=== PATIENT | female | born 1995 | race Asian ===

== ENCOUNTER 2020-05-29 11:47 | Outpatient (CLI) | payer OTHER ==
[2020-05-29 15:05] LABS: Bacteria,Urine 1+ /HPF (Negative); Bilirubin,Urine NEG (Negative); Blood,Urine NEG (Negative); Color,Urine Yellow (Yellow); Hyaline Casts,Urine 1 /LPF; Mucus,Urine FEW /HPF; Urobilinogen,Urine < 2.0 mg/dL (<2.0)
[2020-05-29] MEDS ORDERED: LACTATED RINGERS 1,000 ML IV SCH (15:15)
[2020-05-29 16:18] VITALS: BP 115/74
== END 2020-05-29 16:26 | disposition home or self-care (01) ==
LOC: TRG 11:47 → APU 12:03 → TRG 16:26
PROVIDERS: ATTEND Obstetrics & Gynecology
DX: O26.893 Other specified pregnancy related conditions, third trimester (principal); R60.9 Edema, unspecified; Z3A.31 31 weeks gestation of pregnancy
CPT/HCPCS: 59025; 81001

== ENCOUNTER 2020-06-06 17:47 | Outpatient (CLI) | payer OTHER ==
[2020-06-06 19:10] VITALS: BP 133/82
[2020-06-06] MEDS ORDERED: LACTATED RINGERS 1,000 ML IV SCH (19:15)
[2020-06-06 19:21] LABS: Hematocrit 34.9 % (30.3-42.9); Hemoglobin 11.9 gm/dl (10.1-14.3); Mean Corpuscular HGB Conc 34 % (30-34); Mean Corpuscular Volume 92 fl (79-97); Platelet Count 194 K/mm3 (140-440); Red Blood Count 3.79 M/mm3 (3.65-5.03); Red Cell Distribution Width 12.7 % (13.2-15.2)
[2020-06-06 19:24] LABS: Bacteria,Urine 1+ /HPF (Negative); Bilirubin,Urine NEG (Negative); Blood,Urine NEG (Negative); Color,Urine Yellow (Yellow); Hyaline Casts,Urine 3 /LPF; Mucus,Urine FEW /HPF; Protein,Urine <15 mg/dL mg/dL (Negative); Urobilinogen,Urine < 2.0 mg/dL (<2.0)
[2020-06-06 19:46] LABS: Alanine Aminotransferase 18 units/L (7-56); Uric Acid 5.5 mg/dL (3.5-7.6)
[2020-06-06] MEDS ORDERED: BUTALB/ACETAMINOPHEN/CAFFEINE TAB PO ONE (20:00)
== END 2020-06-06 20:48 | disposition home or self-care (01) ==
LOC: TRG 17:47 → EDBD 17:47 → APU 17:49 → TRG 20:48
PROVIDERS: ATTEND Obstetrics & Gynecology
DX: O29.43 Spinal and epidural anesthesia induced headache during pregnancy, third trimester (principal); Z3A.33 33 weeks gestation of pregnancy
CPT/HCPCS: 36415; 59025; 81001; 82565; 83615; 84450; 84460; 84550; 85027

== ENCOUNTER 2020-06-21 11:46 | Inpatient (IN) | payer OTHER ==
[2020-06-21] MEDS ORDERED: LACTATED RINGERS 500 ML IV ONE (11:55)
[2020-06-21 12:44] LABS: Bacteria,Urine 1+ /HPF (Negative); Bilirubin,Urine NEG (Negative); Blood,Urine NEG (Negative); Color,Urine Yellow (Yellow); Mucus,Urine FEW /HPF; Protein,Urine <15 mg/dL mg/dL (Negative)
--- NOTE | 2020-06-21 14:03 | History and Physical Report ---
History of Present Illness Date of examination: 06/21/20 (elevated BP; admit for 24hr urine) Chief complaint: Summary of Call: 929-Patient is calling with c/o elevated BP yesterday and last night states yesterday BP was 142/109, last night it was 150/114, and this morning it is 160/120. Pt#[phone]. ............... ....................................................Jo Ann Bedolla June 21, 2020 10:18 AM 1012-Called patient. Instructed patient to go to [facility] Labor and Delivery triage NOW. Denies ctx's, vaginal bleeding, LOF and reports +FM. Reports headache last night but took tylenol and it went away. States she just "feels off". Denies blurred vision, double vision, spots b/f eyes or epigastric pain. Pt state she will arrive at hospital in 30-40 minutes. Report called to Lubna Andrew, Clinical Instructor- she will give info to triage nurse...................................................................Jo Ann Bedolla June 21, 2020 10:19 AM History of present illness: EDC Confirmation: 07/05/2020 Gestational Age: 351/7 weeks Past History : 1 Term Births: 0 Premature Births: 0 Living Children: 0 Para: 0 Mult. Births: 0 Prev : 0 Aborta: 0 Elect. Ab: 0 Spont. Ab: 0 Ectopics: 0 Past Medical History: Eczema Past Surgical History: [place] [facility] [place] Summary: Other Family Member - Has No Family History of Ovarvian Cancer - Entered On: 12/09/2019 Other Family Member - Has No Family History of Colon Cancer - Entered On: 12/09/2019 Other Family Member - Has No Family History of Breast Cancer - Entered On: 12/09/2019 Other Family Member - Has Family History of Hypertension - Entered On: 12/09/2019 Other Family Member - Has Family History of Coronary Heart Disease - Entered On: 12/09/2019 Social History: Marital Status: Single Children: 0 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 of genital herpes: no Genetic History Congenital Heart Defect: Mom: no Dad: no Kallie Disease: Mom: no Dad: no Thalassemia Mom: no Dad: no Neural Tube Defect Mom: no Dad: no Down's Syndrome Mom: no Dad: no Jacobo-Sachs Mom: no Dad: no Sickle Cell Disease/Trait Mom: yes Dad: no Comments: Triat Hemophilia Mom: no Dad: no Muscular Dystrophy Mom: no Dad: no Cystic Fibrosis Mom: no Dad: no [place] Chorea Mom: no Dad: no Mental Retardation Mom: no Dad: no Fragile X Mom: no Dad: no Other Genetic/Chromosomal Disorder Mom: no Dad: no Child w/other defect Mom: no Dad: no Enviromental Exposures Xray Exposure: no Medication, drug, or alcohol use since LMP: yes Exposure to Cat Liter: no Active Medications (reviewed today): VITAMIN PLUS LOW IRON 27-1 MG ORAL TABLET ( VIT-FE FUMARATE-FA) 1 po q day as directed ZOFRAN 8 MG ORAL TABLET (ONDANSETRON HCL) 1 po q 8hrs prn nausea and vomiting METOCLOPRAMIDE HCL 10 MG ORAL TABLET (METOCLOPRAMIDE HCL) Current Allergies (reviewed today): No known allergies Past History - Obstetrical History Expected Date of Delivery: 07/25/20 Actual Gestation: 35 Week(s) 2 Day(s) : 1 Para: 0 Hx # Term Pregnancies: 0 Number of Pregnancies: 0 Spontaneous Abortions: 0 Induced : 0 Number of Living Children: 0 Medications and Allergies Allergies Allergy/AdvReac Type Severity Reaction Status Date / Time No Known Allergies Allergy Verified 06/06/20 18:12 Home Medications Medication Instructions Recorded Confirmed Last Taken Type Vitamin 1 tab PO DAILY 06/21/20 06/21/20 06/21/20 History Active Meds: Active Medications Lactated Ringer's (Lactated Ringers) 1,000 mls @ 125 mls/hr IV DIRECT SAFIA Review of Systems All systems: negative - Vital Signs Vital signs: Vital Signs Pulse BP 74 141/90 06/21/20 12:33 06/21/20 12:33 Temp Pulse Resp BP Pulse Ox 98.9 F 71 20 120/70 98 06/21/20 12:34 06/21/20 13:31 06/21/20 12:34 06/21/20 13:31 06/21/20 12:34 - Physical Exam Breasts: Positive: deferred Cardiovascular: Regular rate, Normal S1, Normal S2 Lungs: Positive: Clear to auscultation Abdomen: Positive: normal appearance, soft, normal bowel sounds. Negative: distention, tenderness Genitourinary (Female): Positive: normal external genitalia Vulva: both: normal Vagina: Positive: normal moisture. Negative: discharge Cervix: Negative: lesion, discharge Uterus: Positive: normal size, normal contour Adnexa: both: normal Anus/Rectum: Positive: normal perianal skin, heme negative. Negative: rectal mass, hemorrhoids Extremities: Positive: edema Deep Tendon Reflex Grade: Normal +2 - Obstetrical FHR: category 1 Uterine Contraction Monitor Mode: External Cervical Dilatation: 0 Cervical Effacement Percentage: 0 station: -2 Uterine Contraction Pattern: Absent Uterine Tone Measurement Phase: Resting Results Result Diagrams: 06/21/20 Unknown 06/21/20 Unknown All other labs normal. GBS Unknown Blood Type: O (01/17/2020) Rh Type: positive (01/17/2020) Rh Antibody Screen: negative (01/17/2020) Hgb: 10.7 (01/17/2020) Hct: 32.6 (01/17/2020) Platelets: 236 (01/17/2020) Rubella: immune (01/17/2020) RPR: nonreactive (01/17/2020) Hep B Surface Antigen: negative (01/17/2020) HIV: negative (01/17/2020) Assessment and Plan 25yo @ 35w1d with elevated BP Initially admitted for 24hr urine and observation. Noted BPs in severe range MGSO4 started. BMZ X 2 doses ordered. I called and spoke with the pt @ the change in the POC. All questions addressed. Pt is aware she may be delivered. - Patient Problems (1) 35 weeks gestation of Onset Date: ~06/21/20 Current Visit: Yes Status: Acute Plan to address problem: Will collect GBS swab. If results unavailable @ IOL will treat per protocol. Continuous monitoring (2) Elevated blood pressure complicating , antepartum Onset Date: ~06/21/20 Current Visit: Yes Status: Acute Plan to address problem: Pt called with elevated BPs Noted in severe range MGSO4 for neuro protection. BMZ to be given X 2 doses (3) Herpes genitalis Onset Date: ~06/21/20 Current Visit: Yes Status: Acute Qualifiers: Herpes simplex infection site: vulvovaginitis Qualified Code(s): A60.04 - Herpesviral vulvovaginitis Plan to address problem: Start Valacyclovir 1k for prophylaxis. No ulcerations noted @ time of admission (4) Sickle cell trait syndrome Onset Date: ~06/21/20 Current Visit: Yes Status: Acute
[2020-06-21 14:04] LABS: Hematocrit 30.8 % (30.3-42.9); Hemoglobin 10.8 gm/dl (10.1-14.3); Mean Corpuscular HGB Conc 35 % (30-34); Mean Corpuscular Volume 92 fl (79-97); Platelet Count 161 K/mm3 (140-440); Red Blood Count 3.35 M/mm3 (3.65-5.03); Red Cell Distribution Width 13.1 % (13.2-15.2)
[2020-06-21 14:30] LABS: Alanine Aminotransferase 16 units/L (7-56); Uric Acid 5.3 mg/dL (3.5-7.6)
[2020-06-21] MEDS ORDERED: SODIUM CHLORIDE NASAL SPRAY 44ML NS PRN (14:30)
[2020-06-21] MEDS ORDERED: ACETAMINOPHEN 325 MG TAB PO PRN (14:30)
[2020-06-21] MEDS ORDERED: diphenhydrAMINE 25 MG CAP PO PRN (14:30)
[2020-06-21] MEDS ORDERED: ONDANSETRON 4 MG/2 ML INJ IV PRN (14:30)
[2020-06-21] MEDS ORDERED: DOCUSATE SODIUM 100 MG CAP PO PRN (15:00)
--- NOTE | 2020-06-21 16:14 | Event Note ---
Date: 06/21/20 Due to severe range blood pressures will start magnesium sulfate at this time as well as administer steroids. Will update pt on change in care plan.
[2020-06-21] MEDS ORDERED: MAGNESIUM SULFATE 4 GM/100 ML BAG IV SCH (16:30)
[2020-06-21] MEDS ORDERED: MAGNESIUM SULFATE 40GM/1000ML 40 GM/1,000 ML BAG IV SCH (17:00)
[2020-06-21] MEDS: BETAMET ACET/BETAMET NA PH 6 MG/ML INJ 5 ML MDV IM SCH (17:01)
[2020-06-21] MEDS: PRENATAL VIT27-FE FUMARATE-FOLIC ACID VIT TAB PO SCH (17:06)
[2020-06-21] MEDS ORDERED: hydrALAZINE 20 MG/1 ML INJ IV ONE (18:20)
[2020-06-21] MEDS: valACYclovir 500 MG TAB PO SCH (18:25)
[2020-06-21] MEDS: LACTATED RINGERS 1,000 ML IV SCH (18:50)
--- NOTE | 2020-06-21 19:30 | Event Note ---
Date: 06/21/20 I d/w plan of care at this time. IV started after some delay due to pt being a difficult stick. Pt is s/p magnesium bolus and po labetalol. Will con' to closely monitor at this time. She only c/o having pain with the marsh cath. I d/w that we will give lidocane cream to help with the pain.
[2020-06-21] MEDS ORDERED: EMLA CREAM 5 GM TP ONE (21:30)
[2020-06-22] MEDS ORDERED: AMPICILLIN/NS 1 GM/50 ML 1 GM/50 ML BAG IV SCH (02:00)
--- NOTE | 2020-06-22 07:03 | Progress Note ---
Assessment and Plan Pt seen by Dr Star dennison AM Plan based on results of 24hr urine - Patient Problems (1) 35 weeks gestation of Onset Date: ~06/21/20 Current Visit: Yes Status: Acute Plan to address problem: BMZ being given Second dose @1700. Continuous FM. (2) Elevated blood pressure complicating , antepartum Onset Date: ~06/21/20 Current Visit: Yes Status: Acute Plan to address problem: Labetalol 200mg BID (3) Herpes genitalis Onset Date: ~06/21/20 Current Visit: Yes Status: Acute Qualifiers: Herpes simplex infection site: vulvovaginitis Qualified Code(s): A60.04 - Herpesviral vulvovaginitis Plan to address problem: Valacyclovir 1k QD (4) Sickle cell trait syndrome Onset Date: ~06/21/20 Current Visit: Yes Status: Acute Subjective - Subjective Date of service: 06/22/20 (pt in good spirits) Principal diagnosis: IUP 35w3d PreE; MGSO4, BMZ, Labetalol 200mg BID Interval history: EDC Confirmation: 07/05/2020 Gestational Age: 351/7 weeks Past History : 1 Term Births: 0 Premature Births: 0 Living Children: 0 Para: 0 Mult. Births: 0 Prev : 0 Aborta: 0 Elect. Ab: 0 Spont. Ab: 0 Ectopics: 0 Past Medical History: Eczema Past Surgical History: Abdominal Surgery: (10/07/2019) [facility] – [place] Family History Summary: Other Family Member - Has No Family History of Ovarvian Cancer - Entered On: 12/09/2019 Other Family Member - Has No Family History of Colon Cancer - Entered On: 12/09/2019 Other Family Member - Has No Family History of Breast Cancer - Entered On: 12/09/2019 Other Family Member - Has Family History of Hypertension - Entered On: 12/09/2019 Other Family Member - Has Family History of Coronary Heart Disease - Entered On: 12/09/2019 Social History: Marital Status: Single Children: 0 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 of genital herpes: no Genetic History Congenital Heart Defect: Mom: no Dad: no Kallie Disease: Mom: no Dad: no Thalassemia Mom: no Dad: no Neural Tube Defect Mom: no Dad: no Down's Syndrome Mom: no Dad: no Jacobo-Sachs Mom: no Dad: no Sickle Cell Disease/Trait Mom: yes Dad: no Comments: Triat Hemophilia Mom: no Dad: no Muscular Dystrophy Mom: no Dad: no Cystic Fibrosis Mom: no Dad: no [place] Chorea Mom: no Dad: no Mental Retardation Mom: no Dad: no Fragile X Mom: no Dad: no Other Genetic/Chromosomal Disorder Mom: no Dad: no Child w/other defect Mom: no Dad: no Enviromental Exposures Xray Exposure: no Medication, drug, or alcohol use since LMP: yes Exposure to Cat Liter: no Active Medications (reviewed today): VITAMIN PLUS LOW IRON 27-1 MG ORAL TABLET ( VIT-FE FUMARATE-FA) 1 po q day as directed ZOFRAN 8 MG ORAL TABLET (ONDANSETRON HCL) 1 po q 8hrs prn nausea and vomiting METOCLOPRAMIDE HCL 10 MG ORAL TABLET (METOCLOPRAMIDE HCL) Current Allergies (reviewed today): No known allergies Patient reports: movement normal Objective - Vital Signs Vital Signs: Vital Signs - 12hr 06/21/20 06/21/20 06/21/20 19:04 19:09 19:19 Temperature 98.6 F Pulse Rate 98 H 94 H Respiratory 19 Rate Blood Pressure 139/86 144/89 Blood Pressure [Right] O2 Sat by Pulse Oximetry 06/21/20 06/21/20 06/21/20 19:34 19:49 20:04 Temperature Pulse Rate 100 H 92 H 93 H Respiratory Rate Blood Pressure 139/87 142/82 141/82 Blood Pressure [Right] O2 Sat by Pulse Oximetry 06/21/20 06/21/20 06/21/20 20:19 20:34 20:49 Temperature Pulse Rate 88 91 H 88 Respiratory Rate Blood Pressure 133/77 136/80 140/79 Blood Pressure [Right] O2 Sat by Pulse Oximetry 06/21/20 06/21/20 06/21/20 21:05 21:19 21:34 Temperature Pulse Rate 95 H 99 H 93 H Respiratory Rate Blood Pressure 130/78 158/89 143/76 Blood Pressure [Right] O2 Sat by Pulse Oximetry 06/21/20 06/21/20 06/21/20 21:40 21:41 21:46 Temperature Pulse Rate 91 H 94 H 90 Respiratory Rate Blood Pressure Blood Pressure [Right] O2 Sat by Pulse 84 100 100 Oximetry 06/21/20 06/21/20 06/21/20 21:49 21:51 21:56 Temperature Pulse Rate 96 H 87 100 H Respiratory Rate Blood Pressure 140/78 Blood Pressure [Right] O2 Sat by Pulse 100 100 Oximetry 06/21/20 06/21/20 06/21/20 22:01 22:04 22:06 Temperature Pulse Rate 95 H 89 94 H Respiratory Rate Blood Pressure 143/80 Blood Pressure [Right] O2 Sat by Pulse 100 100 Oximetry 06/21/20 06/21/20 06/21/20 22:11 22:14 22:15 Temperature 98.4 F Pulse Rate 94 H 94 H 89 Respiratory 18 Rate Blood Pressure 140/77 Blood Pressure 140/77 [Right] O2 Sat by Pulse 100 Oximetry 06/21/20 06/21/20 06/21/20 22:16 22:19 22:20 Temperature Pulse Rate 91 H 88 98 H Respiratory Rate Blood Pressure 141/79 141/79 Blood Pressure [Right] O2 Sat by Pulse 100 Oximetry 06/21/20 06/21/20 06/21/20 22:21 22:26 22:31 Temperature Pulse Rate 96 H 95 H 92 H Respiratory Rate Blood Pressure Blood Pressure [Right] O2 Sat by Pulse 100 100 100 Oximetry 06/21/20 06/21/20 06/21/20 22:34 22:36 22:41 Temperature Pulse Rate 94 H 94 H 92 H Respiratory Rate Blood Pressure 112/72 Blood Pressure [Right] O2 Sat by Pulse 100 100 Oximetry 06/21/20 06/21/20 06/21/20 22:46 22:50 22:51 Temperature Pulse Rate 95 H 93 H 103 H Respiratory Rate Blood Pressure 137/72 Blood Pressure [Right] O2 Sat by Pulse 100 100 Oximetry 06/21/20 06/21/20 06/21/20 22:56 23:01 23:04 Temperature Pulse Rate 102 H 90 94 H Respiratory Rate Blood Pressure 143/75 Blood Pressure [Right] O2 Sat by Pulse 100 100 Oximetry 06/21/20 06/21/20 06/21/20 23:06 23:11 23:15 Temperature Pulse Rate 101 H 93 H 94 H Respiratory Rate Blood Pressure Blood Pressure [Right] O2 Sat by Pulse 99 99 100 Oximetry 06/21/20 06/21/20 06/21/20 23:19 23:21 23:26 Temperature Pulse Rate 89 84 89 Respiratory Rate Blood Pressure 139/73 Blood Pressure [Right] O2 Sat by Pulse 99 100 Oximetry 06/21/20 06/21/20 06/21/20 23:31 23:34 23:36 Temperature Pulse Rate 90 91 H 94 H Respiratory Rate Blood Pressure 142/77 Blood Pressure [Right] O2 Sat by Pulse 99 99 Oximetry 06/21/20 06/21/20 06/21/20 23:41 23:45 23:49 Temperature Pulse Rate 93 H 91 H 85 Respiratory Rate Blood Pressure 143/79 Blood Pressure [Right] O2 Sat by Pulse 99 100 Oximetry 06/21/20 06/21/20 06/22/20 23:51 23:56 00:01 Temperature Pulse Rate 89 93 H 87 Respiratory Rate Blood Pressure Blood Pressure [Right] O2 Sat by Pulse 98 99 100 Oximetry 06/22/20 06/22/20 06/22/20 00:04 00:05 00:11 Temperature Pulse Rate 86 89 91 H Respiratory Rate Blood Pressure 140/85 Blood Pressure [Right] O2 Sat by Pulse 99 99 Oximetry 06/22/20 06/22/20 06/22/20 00:16 00:19 00:21 Temperature Pulse Rate 91 H 88 89 Respiratory Rate Blood Pressure 142/87 Blood Pressure [Right] O2 Sat by Pulse 100 99 Oximetry 06/22/20 06/22/20 06/22/20 00:26 00:31 00:35 Temperature Pulse Rate 89 90 88 Respiratory Rate Blood Pressure 131/76 Blood Pressure [Right] O2 Sat by Pulse 98 97 98 Oximetry 06/22/20 06/22/20 06/22/20 00:41 00:46 00:49 Temperature Pulse Rate 91 H 93 H 97 H Respiratory Rate Blood Pressure 134/74 Blood Pressure [Right] O2 Sat by Pulse 97 96 Oximetry 06/22/20 06/22/20 06/22/20 00:51 00:56 01:00 Temperature Pulse Rate 92 H 94 H 84 Respiratory Rate Blood Pressure Blood Pressure [Right] O2 Sat by Pulse 97 96 99 Oximetry 06/22/20 06/22/20 06/22/20 01:05 01:11 01:16 Temperature Pulse Rate 86 91 H 87 Respiratory Rate Blood Pressure 136/86 Blood Pressure [Right] O2 Sat by Pulse 98 98 99 Oximetry 06/22/20 06/22/20 06/22/20 01:21 01:25 01:30 Temperature Pulse Rate 82 81 87 Respiratory Rate Blood Pressure Blood Pressure [Right] O2 Sat by Pulse 99 100 98 Oximetry 06/22/20 06/22/20 06/22/20 01:34 01:35 01:41 Temperature Pulse Rate 86 89 90 Respiratory Rate Blood Pressure 139/81 Blood Pressure [Right] O2 Sat by Pulse 98 97 Oximetry 06/22/20 06/22/20 06/22/20 01:45 01:49 01:51 Temperature Pulse Rate 90 99 H 87 Respiratory Rate Blood Pressure 141/82 Blood Pressure [Right] O2 Sat by Pulse 98 98 Oximetry 06/22/20 06/22/20 06/22/20 01:55 02:00 02:04 Temperature 98.7 F Pulse Rate 88 94 H 89 Respiratory 18 Rate Blood Pressure 135/77 Blood Pressure 135/77 [Right] O2 Sat by Pulse 97 97 Oximetry 06/22/20 06/22/20 06/22/20 02:06 02:10 02:15 Temperature Pulse Rate 91 H 91 H 88 Respiratory Rate Blood Pressure Blood Pressure [Right] O2 Sat by Pulse 97 97 98 Oximetry 06/22/20 06/22/20 06/22/20 02:19 02:21 02:26 Temperature Pulse Rate 88 84 86 Respiratory Rate Blood Pressure 135/74 Blood Pressure [Right] O2 Sat by Pulse 98 98 Oximetry 06/22/20 06/22/20 06/22/20 02:30 02:34 02:35 Temperature Pulse Rate 89 90 88 Respiratory Rate Blood Pressure 140/84 Blood Pressure [Right] O2 Sat by Pulse 98 98 Oximetry 06/22/20 06/22/20 06/22/20 02:40 02:45 02:49 Temperature Pulse Rate 86 81 88 Respiratory Rate Blood Pressure 139/86 Blood Pressure [Right] O2 Sat by Pulse 100 100 Oximetry 06/22/20 06/22/2006/22/21 02:50 02:55 03:00 Temperature Pulse Rate 84 83 85 Respiratory Rate Blood Pressure Blood Pressure [Right] O2 Sat by Pulse 99 99 98 Oximetry 06/22/20 06/22/20 06/22/20 03:05 03:10 03:15 Temperature Pulse Rate 81 86 89 Respiratory Rate Blood Pressure 134/81 Blood Pressure [Right] O2 Sat by Pulse 99 98 98 Oximetry 06/22/20 06/22/20 06/22/20 03:19 03:20 03:25 Temperature Pulse Rate 89 89 87 Respiratory Rate Blood Pressure 132/78 Blood Pressure [Right] O2 Sat by Pulse 98 98 Oximetry 06/22/20 06/22/20 06/22/20 03:30 03:34 03:35 Temperature Pulse Rate 88 85 86 Respiratory Rate Blood Pressure 137/78 Blood Pressure [Right] O2 Sat by Pulse 98 98 Oximetry 06/22/20 06/22/20 06/22/20 03:40 03:45 03:49 Temperature Pulse Rate 88 86 100 H Respiratory Rate Blood Pressure 140/76 Blood Pressure [Right] O2 Sat by Pulse 98 98 Oximetry 06/22/20 06/22/20 06/22/20 03:50 03:55 04:00 Temperature Pulse Rate 81 85 83 Respiratory Rate Blood Pressure Blood Pressure [Right] O2 Sat by Pulse 98 98 99 Oximetry 06/22/20 06/22/20 06/22/20 04:04 04:05 04:10 Temperature Pulse Rate 92 H 84 80 Respiratory Rate Blood Pressure 139/71 Blood Pressure [Right] O2 Sat by Pulse 100 99 Oximetry 06/22/20 06/22/20 06/22/20 04:15 04:20 04:25 Temperature Pulse Rate 87 81 86 Respiratory Rate Blood Pressure 133/82 Blood Pressure [Right] O2 Sat by Pulse 98 99 98 Oximetry 06/22/20 06/22/20 06/22/20 04:30 04:34 04:35 Temperature Pulse Rate 86 89 88 Respiratory Rate Blood Pressure 138/83 Blood Pressure [Right] O2 Sat by Pulse 98 98 Oximetry 06/22/20 06/22/20 06/22/20 04:40 04:45 04:49 Temperature Pulse Rate 86 86 86 Respiratory Rate Blood Pressure 143/88 Blood Pressure [Right] O2 Sat by Pulse 98 98 Oximetry 06/22/20 06/22/2006/22/21 04:50 04:55 05:00 Temperature Pulse Rate 83 86 84 Respiratory Rate Blood Pressure Blood Pressure [Right] O2 Sat by Pulse 99 98 98 Oximetry 06/22/20 06/22/20 06/22/20 05:05 05:10 05:15 Temperature Pulse Rate 85 88 85 Respiratory Rate Blood Pressure 136/77 Blood Pressure [Right] O2 Sat by Pulse 99 98 99 Oximetry 06/22/20 06/22/20 06/22/20 05:19 05:20 05:25 Temperature Pulse Rate 88 85 89 Respiratory Rate Blood Pressure 139/79 Blood Pressure [Right] O2 Sat by Pulse 98 98 Oximetry 06/22/20 06/22/20 06/22/20 05:30 05:34 05:35 Temperature Pulse Rate 81 83 81 Respiratory Rate Blood Pressure 143/82 Blood Pressure [Right] O2 Sat by Pulse 99 99 Oximetry 06/22/20 06/22/20 06/22/20 05:40 05:45 05:49 Temperature Pulse Rate 88 82 85 Respiratory Rate Blood Pressure 141/79 Blood Pressure [Right] O2 Sat by Pulse 98 99 Oximetry 06/22/20 06/22/20 06/22/20 05:50 05:55 06:00 Temperature Pulse Rate 84 84 85 Respiratory Rate Blood Pressure Blood Pressure [Right] O2 Sat by Pulse 98 99 99 Oximetry 06/22/20 06/22/20 06/22/20 06:05 06:10 06:15 Temperature Pulse Rate 98 H 85 89 Respiratory Rate Blood Pressure 139/94 Blood Pressure [Right] O2 Sat by Pulse 99 99 99 Oximetry 06/22/20 06/22/20 06/22/20 06:19 06:20 06:25 Temperature Pulse Rate 87 82 84 Respiratory Rate Blood Pressure 134/92 Blood Pressure [Right] O2 Sat by Pulse 100 100 Oximetry 06/22/20 06/22/20 06/22/20 06:30 06:34 06:35 Temperature Pulse Rate 85 85 82 Respiratory Rate Blood Pressure 131/84 Blood Pressure [Right] O2 Sat by Pulse 100 100 Oximetry 06/22/20 06/22/20 06/22/20 06:40 06:45 06:50 Temperature Pulse Rate 85 88 88 Respiratory Rate Blood Pressure 127/83 Blood Pressure [Right] O2 Sat by Pulse 100 99 100 Oximetry 06/22/20 06/22/20 06:55 07:00 Temperature Pulse Rate 91 H 89 Respiratory Rate Blood Pressure Blood Pressure [Right] O2 Sat by Pulse 100 100 Oximetry - Exam Breasts: deferred Cardiovascular: Regular rate Lungs: Normal air movement Abdomen: Present: normal appearance, soft. Absent: distention, tenderness Uterus: Present: normal FHR: auscultation normal - Labs Labs: Abnormal Labs 06/21/20 06/22/20 Unknown 00:57 RBC 3.35 L MCHC 35 H RDW 13.1 L Magnesium 4.10 H Laboratory Results - last 24 hr 06/21/20 06/21/20 06/21/20 15:15 Unknown Unknown WBC 5.4 RBC 3.35 L Hgb 10.8 Hct 30.8 MCV 92 MCH 32 MCHC 35 H RDW 13.1 L Plt Count 161 Creatinine Estimated GFR Uric Acid Magnesium AST ALT Lactate Dehydrogenase Urine Color Yellow Urine Turbidity Clear Urine pH 6.0 Ur Specific [place] 1.014 Urine Protein <15 mg/dl Urine Glucose (UA) Neg Urine Ketones Neg Urine Blood Neg Urine Nitrite Neg Urine Bilirubin Neg Urine Urobilinogen 2.0 Ur Leukocyte Esterase Neg Urine WBC (Auto) 2.0 Urine RBC (Auto) 1.0 U Epithel Cells (Auto) 2.0 Urine Bacteria (Auto) 1+ Urine Mucus Few Blood Type O POSITIVE Antibody Screen Negative 06/21/20 06/22/20 Unknown 00:57 WBC RBC Hgb Hct MCV MCH MCHC RDW Plt Count Creatinine 0.6 Estimated GFR > 60 Uric Acid 5.3 Magnesium 4.10 H AST 20 ALT 16 Lactate Dehydrogenase 168 Urine Color Urine Turbidity Urine pH Ur Specific [place] Urine Protein Urine Glucose (UA) Urine Ketones Urine Blood Urine Nitrite Urine Bilirubin Urine Urobilinogen Ur Leukocyte Esterase Urine WBC (Auto) Urine RBC (Auto) U Epithel Cells (Auto) Urine Bacteria (Auto) Urine Mucus Blood Type Antibody Screen
[2020-06-22] MEDS: ACETAMINOPHEN 500 MG TAB PO PRN ×2 (08:34→16:06)
[2020-06-22] MEDS: LACTATED RINGERS 1,000 ML IV SCH ×2 (08:35→22:08)
[2020-06-22] MEDS: PRENATAL VIT27-FE FUMARATE-FOLIC ACID VIT TAB PO SCH (09:58)
[2020-06-22] MEDS: valACYclovir 500 MG TAB PO SCH (09:58)
--- NOTE | 2020-06-22 10:15 | Ultrasound Report ---
US OB FOLLOW UP INDICATION / CLINICAL INFORMATION: Gestational hypertension. EFW, presentation, GINETTE. COMPARISON: None available. FINDINGS: There is a single intrauterine in a cephalic presentation. The heart rate is 133 bpm. Amniotic fluid volume is normal with an GINETTE of 11.7 cm. The estimated sonographic gestational age is 32 weeks 3 days with an EDC of 08/14/2020. Clinical dates are 35 weeks 2 days. The estimated we ight is 1981 +/- 293 g. Signer Name: Marlon Byrne MD Signed: 06/22/2020 10:11 AM Workstation Name: [id number]
[2020-06-22] MEDS: BETAMET ACET/BETAMET NA PH 6 MG/ML INJ 5 ML MDV IM SCH (17:13)
--- NOTE | 2020-06-22 20:10 | Progress Note ---
Assessment and Plan - Patient Problems (1) 35 weeks gestation of Onset Date: ~06/21/20 Current Visit: Yes Status: Acute (2) Gestational HTN Current Visit: Yes Status: Acute Qualifiers: Trimester: third trimester Qualified Code(s): O13.3 - Gestational [-induced] hypertension without significant proteinuria, third trimester Plan to address problem: Per [facility] recommendations will proceed with delivery. Recommendations discussed with patient, serial induction explained, she was informed she will require MgSO4 and marsh once she's in active labor as well as IOL may require several days. Questions were encouraged and answered, she voiced understanding and agrees to proceed with induction. Will start Cervidil induction (3) Herpes genitalis Onset Date: ~06/21/20 Current Visit: Yes Status: Chronic Qualifiers: Herpes simplex infection site: vulvovaginitis Qualified Code(s): A60.04 - Herpesviral vulvovaginitis Plan to address problem: No lesions noted, no complaints and no prodromal symptoms (4) Sickle cell trait syndrome Onset Date: ~06/21/20 Current Visit: Yes Status: Acute Subjective - Subjective Date of service: 06/22/20 Principal diagnosis: IUP 35w2d GHTN Interval history: Complains of ZUÑIGA, Patient reports: movement normal, other, no loss of fluid (ZUÑIGA), no vaginal bleeding, no contractions Objective - Vital Signs Vital Signs: Vital Signs - 12hr 06/22/20 06/22/20 06/22/20 08:10 08:15 08:20 Temperature Pulse Rate 99 H 86 83 Respiratory Rate Blood Pressure Blood Pressure [Right] O2 Sat by Pulse 100 100 100 Oximetry 06/22/20 06/22/20 06/22/20 08:25 08:30 08:32 Temperature Pulse Rate 100 H 82 85 Respiratory Rate Blood Pressure 126/86 Blood Pressure [Right] O2 Sat by Pulse 100 100 Oximetry 06/22/20 06/22/20 06/22/20 08:35 08:40 08:45 Temperature Pulse Rate 86 84 88 Respiratory Rate Blood Pressure Blood Pressure [Right] O2 Sat by Pulse 100 100 99 Oximetry 06/22/20 06/22/20 06/22/20 08:50 08:55 09:00 Temperature Pulse Rate 86 85 85 Respiratory Rate Blood Pressure Blood Pressure [Right] O2 Sat by Pulse 100 100 100 Oximetry 0206/22/20 06/22/20 09:03 09:05 09:10 Temperature Pulse Rate 84 84 90 Respiratory Rate Blood Pressure 130/69 Blood Pressure [Right] O2 Sat by Pulse 100 100 Oximetry 06/22/20 06/22/20 06/22/20 09:15 09:20 09:25 Temperature Pulse Rate 91 H 90 91 H Respiratory Rate Blood Pressure Blood Pressure [Right] O2 Sat by Pulse 100 100 100 Oximetry 06/22/20 06/22/20 06/22/20 09:30 09:32 09:35 Temperature Pulse Rate 92 H 93 H 90 Respiratory Rate Blood Pressure 126/84 Blood Pressure [Right] O2 Sat by Pulse 100 100 Oximetry 06/22/20 06/22/20 06/22/20 09:40 09:45 09:50 Temperature Pulse Rate 95 H 98 H 85 Respiratory Rate Blood Pressure Blood Pressure [Right] O2 Sat by Pulse 100 100 89 Oximetry 06/22/20 06/22/20 06/22/20 09:55 09:56 09:59 Temperature Pulse Rate 92 H 95 H 85 Respiratory Rate Blood Pressure 126/84 Blood Pressure [Right] O2 Sat by Pulse 100 94 Oximetry 06/22/20 06/22/20 06/22/20 10:00 10:02 10:05 Temperature Pulse Rate 96 H 86 84 Respiratory Rate Blood Pressure 136/84 Blood Pressure [Right] O2 Sat by Pulse 100 100 Oximetry 06/22/20 06/22/20 06/22/20 10:10 10:15 10:20 Temperature Pulse Rate 83 85 82 Respiratory Rate Blood Pressure Blood Pressure [Right] O2 Sat by Pulse 100 100 100 Oximetry 06/22/20 06/22/20 06/22/20 10:25 10:30 10:32 Temperature Pulse Rate 90 85 83 Respiratory Rate Blood Pressure 132/81 Blood Pressure [Right] O2 Sat by Pulse 100 100 Oximetry 06/22/20 06/22/20 06/22/20 10:35 10:40 10:45 Temperature Pulse Rate 83 88 92 H Respiratory Rate Blood Pressure Blood Pressure [Right] O2 Sat by Pulse 100 100 99 Oximetry 06/22/20 06/22/20 06/22/20 10:50 10:55 11:00 Temperature Pulse Rate 84 99 H 93 H Respiratory Rate Blood Pressure Blood Pressure [Right] O2 Sat by Pulse 100 100 100 Oximetry 06/22/20 06/22/20 06/22/20 11:05 11:10 11:15 Temperature Pulse Rate 90 89 94 H Respiratory Rate Blood Pressure 138/72 Blood Pressure [Right] O2 Sat by Pulse 100 100 100 Oximetry 06/22/20 06/22/20 06/22/20 11:20 11:25 11:30 Temperature Pulse Rate 89 98 H 86 Respiratory Rate Blood Pressure Blood Pressure [Right] O2 Sat by Pulse 100 100 99 Oximetry 06/22/20 06/22/20 06/22/20 11:32 11:35 11:40 Temperature Pulse Rate 100 H 93 H 94 H Respiratory Rate Blood Pressure 136/84 Blood Pressure [Right] O2 Sat by Pulse 100 100 Oximetry 06/22/20 06/22/20 06/22/20 11:45 11:47 11:48 Temperature 97.7 F Pulse Rate 98 H 91 H 91 H Respiratory 18 Rate Blood Pressure 140/92 Blood Pressure 140/92 [Right] O2 Sat by Pulse 99 98 Oximetry 06/22/20 06/22/20 06/22/20 11:50 11:55 12:00 Temperature Pulse Rate 91 H 94 H 89 Respiratory Rate Blood Pressure Blood Pressure [Right] O2 Sat by Pulse 100 100 100 Oximetry 06/22/20 06/22/20 06/22/20 12:02 12:05 12:10 Temperature Pulse Rate 91 H 92 H 95 H Respiratory Rate Blood Pressure 140/93 Blood Pressure [Right] O2 Sat by Pulse 100 100 Oximetry 06/22/20 06/22/20 06/22/20 12:15 12:20 12:25 Temperature Pulse Rate 93 H 89 98 H Respiratory Rate Blood Pressure Blood Pressure [Right] O2 Sat by Pulse 100 100 100 Oximetry 06/22/20 06/22/20 06/22/20 12:30 12:32 12:35 Temperature Pulse Rate 88 90 94 H Respiratory Rate Blood Pressure 137/94 Blood Pressure [Right] O2 Sat by Pulse 100 100 Oximetry 06/22/20 06/22/20 06/22/20 12:40 12:45 12:50 Temperature Pulse Rate 94 H 93 H 99 H Respiratory Rate Blood Pressure Blood Pressure [Right] O2 Sat by Pulse 100 100 100 Oximetry 06/22/20 06/22/20 06/22/20 12:55 13:00 13:02 Temperature Pulse Rate 90 83 88 Respiratory Rate Blood Pressure 135/81 Blood Pressure [Right] O2 Sat by Pulse 100 100 Oximetry 06/22/20 06/22/20 06/22/20 13:05 13:10 13:15 Temperature Pulse Rate 86 86 88 Respiratory Rate Blood Pressure Blood Pressure [Right] O2 Sat by Pulse 100 100 100 Oximetry 06/22/20 06/22/20 06/22/20 13:20 13:25 13:30 Temperature Pulse Rate 86 88 87 Respiratory Rate Blood Pressure Blood Pressure [Right] O2 Sat by Pulse 100 100 100 Oximetry 06/22/20 06/22/20 06/22/20 13:32 13:35 13:40 Temperature Pulse Rate 89 89 88 Respiratory Rate Blood Pressure 129/76 Blood Pressure [Right] O2 Sat by Pulse 99 99 Oximetry 06/22/20 06/22/20 06/22/20 13:45 13:50 13:55 Temperature Pulse Rate 88 85 85 Respiratory Rate Blood Pressure Blood Pressure [Right] O2 Sat by Pulse 99 99 99 Oximetry 06/22/20 06/22/20 06/22/20 14:00 14:02 14:05 Temperature Pulse Rate 100 H 96 H 90 Respiratory Rate Blood Pressure 156/81 Blood Pressure [Right] O2 Sat by Pulse 100 100 Oximetry 06/22/20 06/22/20 06/22/20 14:10 14:15 14:20 Temperature Pulse Rate 85 83 85 Respiratory Rate Blood Pressure Blood Pressure [Right] O2 Sat by Pulse 100 99 99 Oximetry 06/22/20 06/22/20 06/22/20 14:25 14:30 14:32 Temperature Pulse Rate 87 86 85 Respiratory Rate Blood Pressure 132/75 Blood Pressure [Right] O2 Sat by Pulse 99 99 Oximetry 06/22/20 06/22/20 06/22/20 14:35 14:40 14:45 Temperature Pulse Rate 85 81 90 Respiratory Rate Blood Pressure Blood Pressure [Right] O2 Sat by Pulse 100 100 100 Oximetry 06/22/20 06/22/20 06/22/20 14:50 14:55 15:00 Temperature Pulse Rate 88 92 H 84 Respiratory Rate Blood Pressure Blood Pressure [Right] O2 Sat by Pulse 100 100 100 Oximetry 06/22/20 06/22/20 06/22/20 15:02 15:05 15:10 Temperature Pulse Rate 90 89 85 Respiratory Rate Blood Pressure 133/92 Blood Pressure [Right] O2 Sat by Pulse 100 100 Oximetry 06/22/20 06/22/20 06/22/20 15:15 15:20 15:25 Temperature Pulse Rate 84 93 H 86 Respiratory Rate Blood Pressure Blood Pressure [Right] O2 Sat by Pulse 100 100 100 Oximetry 06/22/20 06/22/20 06/22/20 15:30 15:35 15:36 Temperature Pulse Rate 83 92 H 96 H Respiratory Rate Blood Pressure Blood Pressure [Right] O2 Sat by Pulse 100 100 94 Oximetry 06/22/20 06/22/20 06/22/20 15:40 15:42 15:45 Temperature Pulse Rate 77 83 82 Respiratory Rate Blood Pressure 133/89 Blood Pressure [Right] O2 Sat by Pulse 100 100 Oximetry 06/22/20 06/22/20 06/22/20 15:46 15:50 15:55 Temperature 98.4 F Pulse Rate 82 92 H 83 Respiratory 18 Rate Blood Pressure Blood Pressure 133/89 [Right] O2 Sat by Pulse 100 100 100 Oximetry 06/22/20 06/22/20 06/22/20 16:00 16:02 16:05 Temperature Pulse Rate 80 80 85 Respiratory Rate Blood Pressure 133/82 Blood Pressure [Right] O2 Sat by Pulse 100 100 Oximetry 06/22/20 06/22/20 06/22/20 16:10 16:15 16:20 Temperature Pulse Rate 78 78 83 Respiratory Rate Blood Pressure Blood Pressure [Right] O2 Sat by Pulse 100 100 100 Oximetry 06/22/20 06/22/20 06/22/20 16:25 16:30 16:32 Temperature Pulse Rate 92 H 81 84 Respiratory Rate Blood Pressure 131/79 Blood Pressure [Right] O2 Sat by Pulse 100 100 Oximetry 06/22/20 06/22/20 06/22/20 16:35 16:40 16:45 Temperature Pulse Rate 81 83 82 Respiratory Rate Blood Pressure Blood Pressure [Right] O2 Sat by Pulse 100 100 100 Oximetry 06/22/20 06/22/20 06/22/20 16:50 16:55 17:00 Temperature Pulse Rate 83 81 84 Respiratory Rate Blood Pressure Blood Pressure [Right] O2 Sat by Pulse 100 100 100 Oximetry 06/22/20 06/22/20 06/22/20 17:02 17:05 17:10 Temperature Pulse Rate 88 87 89 Respiratory Rate Blood Pressure 133/88 Blood Pressure [Right] O2 Sat by Pulse 100 100 Oximetry 06/22/20 06/22/20 06/22/20 17:15 17:20 17:25 Temperature Pulse Rate 97 H 85 97 H Respiratory Rate Blood Pressure Blood Pressure [Right] O2 Sat by Pulse 100 100 100 Oximetry 06/22/20 06/22/20 06/22/20 17:30 17:32 17:35 Temperature Pulse Rate 88 92 H 86 Respiratory Rate Blood Pressure 137/79 Blood Pressure [Right] O2 Sat by Pulse 100 100 Oximetry 06/22/20 06/22/20 06/22/20 17:40 17:45 17:50 Temperature Pulse Rate 95 H 80 88 Respiratory Rate Blood Pressure Blood Pressure [Right] O2 Sat by Pulse 100 100 100 Oximetry 06/22/20 06/22/20 06/22/20 17:55 18:00 18:02 Temperature Pulse Rate 75 83 80 Respiratory Rate Blood Pressure 135/80 Blood Pressure [Right] O2 Sat by Pulse 100 100 Oximetry 06/22/20 06/22/20 06/22/20 18:05 18:10 18:15 Temperature Pulse Rate 83 83 90 Respiratory Rate Blood Pressure Blood Pressure [Right] O2 Sat by Pulse 100 100 100 Oximetry 06/22/20 06/22/20 06/22/20 18:20 18:25 18:30 Temperature Pulse Rate 87 88 89 Respiratory Rate Blood Pressure Blood Pressure [Right] O2 Sat by Pulse 100 100 100 Oximetry 06/22/20 06/22/20 06/22/20 18:32 18:35 18:40 Temperature Pulse Rate 82 88 89 Respiratory Rate Blood Pressure 129/81 Blood Pressure [Right] O2 Sat by Pulse 100 100 Oximetry 06/22/20 06/22/20 06/22/20 18:45 18:50 18:55 Temperature Pulse Rate 83 80 88 Respiratory Rate Blood Pressure Blood Pressure [Right] O2 Sat by Pulse 100 100 100 Oximetry 06/22/20 06/22/20 06/22/20 19:00 19:03 19:05 Temperature Pulse Rate 88 86 84 Respiratory Rate Blood Pressure 138/86 Blood Pressure [Right] O2 Sat by Pulse 100 100 Oximetry 06/22/20 06/22/20 06/22/20 19:10 19:15 19:20 Temperature Pulse Rate 87 84 89 Respiratory Rate Blood Pressure Blood Pressure [Right] O2 Sat by Pulse 100 100 100 Oximetry 06/22/20 06/22/20 06/22/20 19:25 19:30 19:32 Temperature Pulse Rate 86 88 81 Respiratory Rate Blood Pressure 137/83 Blood Pressure [Right] O2 Sat by Pulse 100 100 Oximetry 06/22/20 06/22/20 06/22/20 19:35 19:40 19:45 Temperature Pulse Rate 88 89 87 Respiratory Rate Blood Pressure Blood Pressure [Right] O2 Sat by Pulse 100 100 100 Oximetry 06/22/20 06/22/20 06/22/20 19:50 19:55 20:00 Temperature Pulse Rate 82 87 82 Respiratory Rate Blood Pressure Blood Pressure [Right] O2 Sat by Pulse 100 100 100 Oximetry 06/22/20 06/22/20 20:03 20:05 Temperature Pulse Rate 84 91 H Respiratory Rate Blood Pressure 135/83 Blood Pressure [Right] O2 Sat by Pulse 100 Oximetry - Exam Breasts: deferred Cardiovascular: Regular rate Lungs: Normal air movement Abdomen: Present: soft. Absent: tenderness Vulva: both: normal Uterus: Present: fundal height above umbilicus. Absent: tenderness FHR: category 1 Uterine Contraction Monitor Mode: External Cervical Dilatation: 1 Cervical Effacement Percentage: 50 station: -2, medium, midline Uterine Contraction Pattern: Absent Extremities: normal Deep Tendon Reflex Grade: Normal +2 - Labs Labs: Abnormal Labs 06/21/20 06/22/20 06/22/20 Unknown 00:57 07:18 RBC 3.35 L MCHC 35 H RDW 13.1 L Magnesium 4.10 H 4.80 H Ur Total Protein 24 Hr 06/22/20 06/22/20 15:01 15:10 RBC MCHC RDW Magnesium 5.20 H Ur Total Protein 24 Hr 250.00 H Laboratory Results - last 24 hr 06/22/20 06/22/20 06/22/20 00:57 07:18 09:45 Magnesium 4.10 H 4.80 H Urine Total Volume Ur Total Protein 24 Hr Urine Total Protein Coronavirus (PCR) Negative 06/22/20 06/22/20 15:01 15:10 Magnesium 5.20 H Urine Total Volume 5000 Ur Total Protein 24 Hr 250.00 H Urine Total Protein 5 Coronavirus (PCR) - Results US- obstetric: report reviewed
[2020-06-22] MEDS ORDERED: AMPICILLIN 2 GM in SODIUM CHLORIDE 0.9% 50 ML IV ONE (20:38)
[2020-06-22] MEDS ORDERED: AMPICILLIN/NS 2 GM/100 ML 2 GM/100 ML BAG IV ONE ×2 (21:00→22:00)
[2020-06-22] MEDS ORDERED: AMPICILLIN 1,000 MG in SODIUM CHLORIDE 0.9% 50 ML IV SCH (21:00)
[2020-06-22] MEDS ORDERED: DINOPROSTONE 10 MG VAG SUPP VG ONE ×2 (21:00→22:20)
[2020-06-23] MEDS ORDERED: AMPICILLIN 1,000 MG in SODIUM CHLORIDE 0.9% 50 ML IV SCH (02:00)
[2020-06-23] MEDS ORDERED: BUTORPHANOL 2 MG/1 ML INJ IV ONE (04:42)
[2020-06-23] MEDS: AMPICILLIN/NS 1 GM/50 ML 1 GM/50 ML BAG IV SCH ×2 (06:40→10:00)
--- NOTE | 2020-06-23 07:27 | Progress Note ---
Assessment and Plan plan reviewed with patient to d/c cervidil and start pitocin. pt may have AM care and regular diet if tolerated. All questions addressed. - Patient Problems (1) 35 weeks gestation of Onset Date: ~06/21/20 Current Visit: Yes Status: Acute (2) Gestational HTN Current Visit: Yes Status: Acute Qualifiers: Trimester: third trimester Qualified Code(s): O13.3 - Gestational [-induced] hypertension without significant proteinuria, third trimester (3) Sickle cell trait syndrome Onset Date: ~06/21/20 Current Visit: Yes Status: Acute (4) Herpes genitalis Onset Date: ~06/21/20 Current Visit: Yes Status: Chronic Qualifiers: Herpes simplex infection site: vulvovaginitis Qualified Code(s): A60.04 - Herpesviral vulvovaginitis Plan to address problem: no lesions Subjective - Subjective Date of service: 06/23/20 Principal diagnosis: IUP 35w3d GHTN; IOL Patient reports: movement normal, other, no loss of fluid, no vaginal bleeding, no contractions Objective - Vital Signs Vital Signs: Vital Signs - 12hr 06/22/20 06/22/20 06/22/20 19:30 19:32 19:35 Pulse Rate 88 81 88 Respiratory Rate Blood Pressure 137/83 O2 Sat by Pulse 100 100 Oximetry 06/22/20 06/22/20 06/22/20 19:40 19:45 19:50 Pulse Rate 89 87 82 Respiratory Rate Blood Pressure O2 Sat by Pulse 100 100 100 Oximetry 06/22/20 06/22/20 06/22/20 19:55 20:00 20:03 Pulse Rate 87 82 84 Respiratory Rate Blood Pressure 135/83 O2 Sat by Pulse 100 100 Oximetry 06/22/20 06/22/20 06/22/20 20:05 20:10 20:15 Pulse Rate 91 H 84 97 H Respiratory Rate Blood Pressure O2 Sat by Pulse 100 100 100 Oximetry 06/22/20 06/22/20 06/22/20 20:20 20:25 20:30 Pulse Rate 100 H 118 H 103 H Respiratory Rate Blood Pressure O2 Sat by Pulse 99 100 100 Oximetry 06/22/20 06/22/20 06/22/20 20:35 22:02 22:05 Pulse Rate 103 H 79 87 Respiratory Rate Blood Pressure 133/84 136/83 O2 Sat by Pulse 99 Oximetry 06/22/20 06/22/20 06/22/20 22:33 22:38 22:43 Pulse Rate 78 70 81 Respiratory Rate Blood Pressure 138/82 O2 Sat by Pulse 99 100 Oximetry 06/22/20 06/22/20 06/22/20 22:48 22:53 22:58 Pulse Rate 84 94 H 86 Respiratory Rate Blood Pressure O2 Sat by Pulse 100 100 100 Oximetry 06/22/20 06/22/20 06/22/20 23:02 23:03 23:08 Pulse Rate 80 81 80 Respiratory Rate Blood Pressure 144/83 O2 Sat by Pulse 99 100 Oximetry 06/22/20 06/22/20 06/22/20 23:13 23:18 23:23 Pulse Rate 88 85 91 H Respiratory Rate Blood Pressure O2 Sat by Pulse 100 99 100 Oximetry 06/22/20 06/22/20 06/22/20 23:28 23:32 23:33 Pulse Rate 86 75 95 H Respiratory Rate Blood Pressure 132/80 O2 Sat by Pulse 99 100 Oximetry 06/22/20 06/22/20 06/22/20 23:38 23:43 23:48 Pulse Rate 84 86 87 Respiratory Rate Blood Pressure O2 Sat by Pulse 100 99 100 Oximetry 06/22/20 06/22/20 06/23/20 23:53 23:58 00:02 Pulse Rate 77 87 79 Respiratory Rate Blood Pressure 133/79 O2 Sat by Pulse 100 99 Oximetry 06/23/20 06/23/20 06/23/20 00:03 00:08 00:13 Pulse Rate 82 91 H 81 Respiratory Rate Blood Pressure O2 Sat by Pulse 100 100 99 Oximetry 06/23/20 06/23/20 06/23/20 00:18 00:23 00:28 Pulse Rate 79 85 79 Respiratory Rate Blood Pressure O2 Sat by Pulse 99 99 99 Oximetry 06/23/20 06/23/20 06/23/20 00:32 00:33 00:38 Pulse Rate 79 80 82 Respiratory Rate Blood Pressure 131/68 O2 Sat by Pulse 99 100 Oximetry 06/23/20 06/23/20 06/23/20 00:43 00:48 00:53 Pulse Rate 79 89 87 Respiratory Rate Blood Pressure O2 Sat by Pulse 99 99 99 Oximetry 06/23/20 06/23/20 06/23/20 00:58 01:02 01:03 Pulse Rate 87 82 78 Respiratory Rate Blood Pressure 123/70 O2 Sat by Pulse 99 100 Oximetry 06/23/20 06/23/20 06/23/20 01:08 01:13 01:18 Pulse Rate 85 85 81 Respiratory Rate Blood Pressure O2 Sat by Pulse 98 97 97 Oximetry 06/23/20 06/23/20 06/23/20 01:23 01:28 01:32 Pulse Rate 86 85 83 Respiratory Rate Blood Pressure 123/68 O2 Sat by Pulse 98 97 Oximetry 06/23/20 06/23/20 06/23/20 01:33 01:38 01:43 Pulse Rate 87 83 87 Respiratory Rate Blood Pressure O2 Sat by Pulse 97 97 97 Oximetry 06/23/20 06/23/20 06/23/20 01:48 01:53 01:58 Pulse Rate 90 91 H 91 H Respiratory Rate Blood Pressure O2 Sat by Pulse 97 97 97 Oximetry 06/23/20 06/23/20 06/23/20 02:02 02:03 02:08 Pulse Rate 93 H 88 88 Respiratory Rate Blood Pressure 131/69 O2 Sat by Pulse 97 97 Oximetry 06/23/20 06/23/20 06/23/20 02:13 02:18 02:23 Pulse Rate 97 H 86 93 H Respiratory Rate Blood Pressure O2 Sat by Pulse 97 97 97 Oximetry 06/23/20 06/23/20 06/23/20 02:28 02:32 02:33 Pulse Rate 99 H 90 98 H Respiratory Rate Blood Pressure 127/74 O2 Sat by Pulse 99 99 Oximetry 06/23/20 06/23/20 06/23/20 02:38 02:43 02:48 Pulse Rate 99 H 84 82 Respiratory Rate Blood Pressure O2 Sat by Pulse 99 99 99 Oximetry 06/23/20 06/23/20 06/23/20 02:53 02:58 03:02 Pulse Rate 85 80 82 Respiratory Rate Blood Pressure 127/78 O2 Sat by Pulse 100 100 Oximetry 06/23/20 06/23/20 06/23/20 03:03 03:08 03:13 Pulse Rate 88 88 100 H Respiratory Rate Blood Pressure O2 Sat by Pulse 100 99 100 Oximetry 06/23/20 06/23/20 06/23/20 03:18 03:23 03:28 Pulse Rate 83 94 H 83 Respiratory Rate Blood Pressure O2 Sat by Pulse 100 100 99 Oximetry 06/23/20 06/23/20 06/23/20 03:32 03:33 03:38 Pulse Rate 80 91 H 91 H Respiratory Rate Blood Pressure 143/90 O2 Sat by Pulse 99 100 Oximetry 06/23/20 06/23/20 06/23/20 03:43 03:48 03:53 Pulse Rate 86 84 86 Respiratory Rate Blood Pressure O2 Sat by Pulse 100 99 100 Oximetry 06/23/20 06/23/20 06/23/20 03:58 04:02 04:03 Pulse Rate 96 H 84 81 Respiratory Rate Blood Pressure 142/91 O2 Sat by Pulse 99 100 Oximetry 06/23/20 06/23/20 06/23/20 04:08 04:13 04:18 Pulse Rate 92 H 92 H 90 Respiratory Rate Blood Pressure O2 Sat by Pulse 99 99 99 Oximetry 06/23/20 06/23/20 06/23/20 04:23 04:28 04:33 Pulse Rate 88 88 111 H Respiratory Rate Blood Pressure O2 Sat by Pulse 100 100 98 Oximetry 06/23/20 06/23/20 06/23/20 04:38 04:43 04:45 Pulse Rate 96 H 88 Respiratory 18 Rate Blood Pressure O2 Sat by Pulse 98 98 Oximetry 06/23/20 06/23/20 06/23/20 04:48 04:53 04:58 Pulse Rate 95 H 86 85 Respiratory Rate Blood Pressure O2 Sat by Pulse 98 99 98 Oximetry 06/23/20 06/23/20 06/23/20 05:02 05:03 05:08 Pulse Rate 90 89 93 H Respiratory Rate Blood Pressure 133/77 O2 Sat by Pulse 96 96 Oximetry 06/23/20 06/23/20 06/23/20 05:13 05:18 05:23 Pulse Rate 91 H 93 H 91 H Respiratory Rate Blood Pressure O2 Sat by Pulse 96 96 96 Oximetry 06/23/20 06/23/20 06/23/20 05:28 05:32 05:33 Pulse Rate 94 H 93 H 90 Respiratory Rate Blood Pressure 124/67 O2 Sat by Pulse 95 96 Oximetry 06/23/20 06/23/20 06/23/20 05:38 05:43 05:48 Pulse Rate 91 H 95 H 90 Respiratory Rate Blood Pressure O2 Sat by Pulse 96 97 99 Oximetry 06/23/20 06/23/20 06/23/20 05:53 05:58 06:02 Pulse Rate 84 89 85 Respiratory Rate Blood Pressure 133/77 O2 Sat by Pulse 98 98 Oximetry 06/23/20 06/23/20 06/23/20 06:03 06:08 06:13 Pulse Rate 84 86 79 Respiratory Rate Blood Pressure O2 Sat by Pulse 99 99 98 Oximetry 06/23/20 06/23/20 06/23/20 06:18 06:23 06:28 Pulse Rate 82 82 77 Respiratory Rate Blood Pressure O2 Sat by Pulse 98 99 98 Oximetry 06/23/20 06/23/20 06/23/20 06:32 06:33 06:38 Pulse Rate 79 78 88 Respiratory Rate Blood Pressure 136/82 O2 Sat by Pulse 98 98 Oximetry 06/23/20 06/23/20 06/23/20 06:43 06:48 06:53 Pulse Rate 76 83 77 Respiratory Rate Blood Pressure O2 Sat by Pulse 99 99 99 Oximetry 06/23/20 06/23/20 06/23/20 06:58 07:02 07:03 Pulse Rate 73 75 73 Respiratory Rate Blood Pressure 141/84 O2 Sat by Pulse 99 99 Oximetry 06/23/20 06/23/20 06/23/20 07:08 07:13 07:18 Pulse Rate 79 71 72 Respiratory Rate Blood Pressure O2 Sat by Pulse 100 98 99 Oximetry 06/23/20 07:23 Pulse Rate 75 Respiratory Rate Blood Pressure O2 Sat by Pulse 99 Oximetry - Exam Breasts: normal Cardiovascular: Regular rate Lungs: Normal air movement Abdomen: Present: normal appearance, soft Vulva: both: normal Uterus: Present: normal, fundal height above umbilicus FHR: auscultation normal, category 1 Uterine Contraction Monitor Mode: External Uterine Contraction Pattern: Irregular Uterine Tone Measurement Phase: Resting Uterine Contraction Intensity: Mild Extremities: normal Deep Tendon Reflex Grade: Normal +2 - Labs Labs: Abnormal Labs 06/21/20 06/22/20 06/22/20 Unknown 00:57 07:18 RBC 3.35 L MCHC 35 H RDW 13.1 L Magnesium 4.10 H 4.80 H Ur Total Protein 24 Hr 06/22/20 06/22/20 15:01 15:10 RBC MCHC RDW Magnesium 5.20 H Ur Total Protein 24 Hr 250.00 H Laboratory Results - last 24 hr 06/22/20 06/22/20 06/22/20 07:18 09:45 15:01 Magnesium 4.80 H 5.20 H Urine Total Volume Ur Total Protein 24 Hr Urine Total Protein Coronavirus (PCR) Negative 06/22/20 15:10 Magnesium Urine Total Volume 5000 Ur Total Protein 24 Hr 250.00 H Urine Total Protein 5 Coronavirus (PCR)
[2020-06-23] MEDS: LACTATED RINGERS 1,000 ML IV SCH (09:59)
[2020-06-23] MEDS: PRENATAL VIT27-FE FUMARATE-FOLIC ACID VIT TAB PO SCH (10:01)
[2020-06-23] MEDS: valACYclovir 500 MG TAB PO SCH (10:01)
[2020-06-23] MEDS ORDERED: OXYTOCIN DRIP 30 UNITS/500 ML BAG IV SCH ×2 (11:00→22:13)
[2020-06-23] MEDS ORDERED: OXYTOCIN DRIP 30,000 MILLIUNITS/500 ML BAG IV ONE (11:59)
--- NOTE | 2020-06-23 18:14 | Event Note ---
Date: 06/23/20 Patient complains cramping denies any headache blurred vision. Cervix 1 cm 50% effaced -3 station. Patient without any change with Pitocin today. We will stop Pitocin allow patient to eat and insert Cervidil this evening discussed the plan with patient all questions answered to agrees with plan.Will monitor blood pressure and signs and symptoms of pre-eclampsia
[2020-06-23] MEDS ORDERED: DINOPROSTONE 10 MG VAG SUPP VG ONE (20:00)
[2020-06-24] MEDS: hydrALAZINE 20 MG/1 ML INJ IV PRN ×3 (05:50→16:22)
[2020-06-24] MEDS ORDERED: ALUM-MAG HYDROXIDE-SIMETHICONE 200-200-20MG/5ML ORAL LIQD 30 ML PO PRN (06:22)
--- NOTE | 2020-06-24 06:30 | Event Note ---
Date: 06/24/20 Called by RN patient's with 3 consecutive BP >160/90 Patient c/o headache and some chest pain. Pulse ox >95% Called back after apresoline given BP improved Patient states chest pain has much improved but is worse when lying on her back Pain located mostly midline. Will give mylanta and check chest x-ray
--- NOTE | 2020-06-24 07:15 | XRay Report ---
XR chest 1V ap INDICATION / CLINICAL INFORMATION: chest pain. COMPARISON: None available. FINDINGS: Findings in the chest are accentuated by body habitus and phase of inspiration. SUPPORT DEVICES: None. HEART /PULMONARY VASCULATURE: There is cardiomegaly. Pulmonary vasculature is not significantly conge sted. LUNGS / PLEURA: No definite pulmonary or pleural abnormality. No pneumothorax. ADDITIONAL FINDINGS: No significant additional findings. IMPRESSION: Low lung volumes and cardiomegaly without definite acute cardiopulmonary disease. Signer Name: Alvin Tuttle MD Signed: 06/24/2020 7:10 AM Workstation Name: [id number]
[2020-06-24] MEDS: LACTATED RINGERS 1,000 ML IV SCH ×2 (07:54→13:21)
--- NOTE | 2020-06-24 07:55 | Progress Note ---
Assessment and Plan pt crying with frustration and ZUÑIGA, Pt is requesting a c/s. Advised pt that we will treat her ZUÑIGA and remove cervidil, then discuss risks/benefits of operative once she feeling a little better. Advised c/s is a major abd surgery and once she has a c/s she will likely always need a c/s. Pt states she understands. pulse ox 99%, b/p remains improved but still elevated 140-150's/70-90's after hydralizine. Pt reports chest pain is better but she sill feels "weird." Will give pt antacid. CXR read by cardiology; cardiomegaly. Will updated Dr. Kim - Patient Problems (1) 35 weeks gestation of Onset Date: ~06/21/20 Current Visit: Yes Status: Acute (2) Gestational HTN Current Visit: Yes Status: Acute Qualifiers: Trimester: third trimester Qualified Code(s): O13.3 - Gestational [-induced] hypertension without significant proteinuria, third trimester (3) Sickle cell trait syndrome Onset Date: ~06/21/20 Current Visit: Yes Status: Acute (4) Herpes genitalis Onset Date: ~06/21/20 Current Visit: Yes Status: Chronic Qualifiers: Herpes simplex infection site: vulvovaginitis Qualified Code(s): A60.04 - Herpesviral vulvovaginitis Subjective - Subjective Date of service: 06/24/20 Principal diagnosis: IUP 35w4d GHTN; IOL Patient reports: new complaints ("chest feels weird" ), movement normal, other (ZUÑIGA rated 10/10), no loss of fluid, no vaginal bleeding, no contractions Objective - Vital Signs Vital Signs: Vital Signs - 12hr 06/23/20 06/23/20 06/23/20 19:52 19:57 20:02 Temperature Pulse Rate 85 77 79 Respiratory Rate Blood Pressure 124/74 O2 Sat by Pulse 100 100 100 Oximetry 06/23/20 06/23/20 06/23/20 20:07 20:12 20:17 Temperature Pulse Rate 88 87 99 H Respiratory Rate Blood Pressure O2 Sat by Pulse 100 100 100 Oximetry 06/23/20 06/23/20 06/23/20 20:22 20:27 20:32 Temperature Pulse Rate 89 78 91 H Respiratory Rate Blood Pressure 135/75 O2 Sat by Pulse 100 100 100 Oximetry 06/23/20 06/23/20 06/23/20 20:37 20:42 20:47 Temperature Pulse Rate 75 83 74 Respiratory Rate Blood Pressure O2 Sat by Pulse 100 100 100 Oximetry 06/23/20 06/23/20 06/23/20 20:52 20:57 21:02 Temperature Pulse Rate 75 81 93 H Respiratory Rate Blood Pressure 136/85 O2 Sat by Pulse 100 100 100 Oximetry 06/23/20 06/23/20 06/23/20 21:07 21:12 21:17 Temperature Pulse Rate 77 72 78 Respiratory Rate Blood Pressure O2 Sat by Pulse 100 100 100 Oximetry 06/23/20 06/23/20 06/23/20 21:22 21:24 21:27 Temperature Pulse Rate 75 74 85 Respiratory Rate Blood Pressure O2 Sat by Pulse 100 93 100 Oximetry 06/23/20 06/23/20 06/23/20 21:32 21:37 21:42 Temperature Pulse Rate 77 78 72 Respiratory Rate Blood Pressure O2 Sat by Pulse 100 100 100 Oximetry 06/23/20 06/23/20 06/23/20 21:47 21:52 21:57 Temperature Pulse Rate 93 H 73 72 Respiratory Rate Blood Pressure O2 Sat by Pulse 100 99 99 Oximetry 06/23/20 06/23/20 06/23/20 22:02 22:07 22:12 Temperature Pulse Rate 80 76 80 Respiratory Rate Blood Pressure 131/72 O2 Sat by Pulse 99 97 97 Oximetry 06/23/20 06/23/20 06/23/20 22:17 22:22 22:27 Temperature Pulse Rate 84 98 H 90 Respiratory Rate Blood Pressure O2 Sat by Pulse 97 99 99 Oximetry 06/23/20 06/23/20 06/23/20 22:32 22:37 22:42 Temperature Pulse Rate 78 89 90 Respiratory Rate Blood Pressure O2 Sat by Pulse 99 98 97 Oximetry 06/23/20 06/23/20 06/23/20 22:47 22:52 22:57 Temperature Pulse Rate 87 84 85 Respiratory Rate Blood Pressure O2 Sat by Pulse 97 98 97 Oximetry 06/23/20 06/23/20 06/23/20 23:02 23:07 23:12 Temperature Pulse Rate 84 85 91 H Respiratory Rate Blood Pressure O2 Sat by Pulse 97 97 97 Oximetry 06/23/20 06/23/2021 23:17 23:22 23:23 Temperature Pulse Rate 79 93 H 110 H Respiratory Rate Blood Pressure 122/72 O2 Sat by Pulse 98 98 Oximetry 06/23/20 06/23/20 06/23/20 23:27 23:32 23:37 Temperature Pulse Rate 79 76 82 Respiratory Rate Blood Pressure O2 Sat by Pulse 98 98 98 Oximetry 06/23/20 06/23/20 06/23/20 23:42 23:47 23:52 Temperature Pulse Rate 80 82 84 Respiratory Rate Blood Pressure O2 Sat by Pulse 98 98 98 Oximetry 06/23/20 06/23/20 06/24/20 23:57 23:59 00:02 Temperature 99.1 F Pulse Rate 82 77 Respiratory 18 Rate Blood Pressure O2 Sat by Pulse 98 99 Oximetry 06/24/20 06/24/20 06/24/20 00:07 00:12 00:17 Temperature Pulse Rate 79 83 79 Respiratory Rate Blood Pressure O2 Sat by Pulse 98 98 98 Oximetry 06/24/20 06/24/20 06/24/20 00:22 00:23 00:27 Temperature Pulse Rate 74 71 75 Respiratory Rate Blood Pressure 145/79 O2 Sat by Pulse 98 98 Oximetry 06/24/20 06/24/20 06/24/20 00:32 00:37 00:42 Temperature Pulse Rate 74 73 74 Respiratory Rate Blood Pressure O2 Sat by Pulse 98 98 98 Oximetry 06/24/20 06/24/20 06/24/20 00:47 00:52 00:57 Temperature Pulse Rate 73 93 H 85 Respiratory Rate Blood Pressure O2 Sat by Pulse 99 99 99 Oximetry 06/24/20 06/24/20 06/24/20 01:24 01:26 01:29 Temperature Pulse Rate 62 74 Respiratory Rate Blood Pressure 155/96 O2 Sat by Pulse 98 82 L 97 Oximetry 06/24/20 06/24/20 06/24/20 01:34 01:39 01:44 Temperature Pulse Rate 76 76 76 Respiratory Rate Blood Pressure O2 Sat by Pulse 100 99 99 Oximetry 06/24/20 06/24/20 06/24/20 01:49 01:54 01:59 Temperature Pulse Rate 86 73 80 Respiratory Rate Blood Pressure O2 Sat by Pulse 100 98 98 Oximetry 06/24/20 06/24/20 06/24/20 02:04 02:09 02:14 Temperature Pulse Rate 82 72 84 Respiratory Rate Blood Pressure O2 Sat by Pulse 98 98 99 Oximetry 06/24/20 06/24/20 06/24/20 02:19 02:24 02:25 Temperature Pulse Rate 72 72 79 Respiratory Rate Blood Pressure 156/96 O2 Sat by Pulse 98 97 Oximetry 06/24/20 06/24/20 06/24/20 02:29 02:34 02:39 Temperature Pulse Rate 73 75 80 Respiratory Rate Blood Pressure O2 Sat by Pulse 97 97 97 Oximetry 06/24/20 06/24/20 06/24/20 02:44 02:49 02:54 Temperature Pulse Rate 72 76 74 Respiratory Rate Blood Pressure O2 Sat by Pulse 98 98 97 Oximetry 06/24/20 06/24/20 06/24/20 02:59 03:04 03:09 Temperature Pulse Rate 71 72 79 Respiratory Rate Blood Pressure O2 Sat by Pulse 97 96 97 Oximetry 06/24/20 06/24/20 06/24/20 03:14 03:19 03:43 Temperature Pulse Rate 72 92 H 69 Respiratory Rate Blood Pressure O2 Sat by Pulse 97 97 100 Oximetry 06/24/20 06/24/20 06/24/20 03:44 03:45 03:48 Temperature 98.5 F Pulse Rate 61 66 Respiratory 18 Rate Blood Pressure O2 Sat by Pulse 94 100 Oximetry 06/24/20 06/24/20 06/24/20 03:50 03:53 03:58 Temperature Pulse Rate 66 69 67 Respiratory Rate Blood Pressure 143/96 O2 Sat by Pulse 99 98 Oximetry 06/24/20 06/24/20 06/24/20 04:03 04:07 04:08 Temperature Pulse Rate 70 80 62 Respiratory Rate Blood Pressure O2 Sat by Pulse 99 94 99 Oximetry 06/24/20 06/24/20 06/24/20 04:13 04:18 04:23 Temperature Pulse Rate 66 64 70 Respiratory Rate Blood Pressure O2 Sat by Pulse 99 99 99 Oximetry 06/24/20 06/24/20 06/24/20 04:27 04:28 04:33 Temperature Pulse Rate 64 64 66 Respiratory Rate Blood Pressure 172/87 O2 Sat by Pulse 100 98 Oximetry 06/24/20 06/24/20 06/24/20 04:38 04:41 04:43 Temperature Pulse Rate 67 67 66 Respiratory Rate Blood Pressure O2 Sat by Pulse 98 83 L 99 Oximetry 06/24/20 06/24/20 06/24/20 04:48 04:53 04:58 Temperature Pulse Rate 62 64 62 Respiratory Rate Blood Pressure O2 Sat by Pulse 99 99 100 Oximetry 06/24/20 06/24/20 06/24/20 05:03 05:08 05:13 Temperature Pulse Rate 64 60 72 Respiratory Rate Blood Pressure O2 Sat by Pulse 96 99 92 Oximetry 06/24/20 06/24/20 06/24/20 05:18 05:23 05:25 Temperature Pulse Rate 63 66 66 Respiratory Rate Blood Pressure 164/93 O2 Sat by Pulse 99 99 Oximetry 06/24/20 06/24/20 06/24/20 05:28 05:29 05:33 Temperature Pulse Rate 64 78 67 Respiratory Rate Blood Pressure 176/109 O2 Sat by Pulse 99 91 99 Oximetry 06/24/20 06/24/20 06/24/20 05:36 05:38 05:43 Temperature Pulse Rate 71 69 67 Respiratory Rate Blood Pressure O2 Sat by Pulse 87 97 99 Oximetry 06/24/20 06/24/20 06/24/20 05:45 05:48 05:50 Temperature Pulse Rate 77 68 66 Respiratory Rate Blood Pressure 176/109 O2 Sat by Pulse 34 L 100 Oximetry 06/24/20 06/24/20 06/24/20 05:51 05:53 05:58 Temperature Pulse Rate 69 77 69 Respiratory Rate Blood Pressure O2 Sat by Pulse 80 L 100 97 Oximetry 06/24/20 06/24/20 06/24/20 06:01 06:03 06:09 Temperature Pulse Rate 94 H 81 76 Respiratory Rate Blood Pressure 163/100 O2 Sat by Pulse 92 98 96 Oximetry 06/24/20 06/24/20 06/24/20 06:10 06:14 06:15 Temperature Pulse Rate 76 76 76 Respiratory Rate Blood Pressure 151/90 O2 Sat by Pulse 97 94 Oximetry 06/24/20 06/24/20 06/24/20 06:19 06:24 06:26 Temperature Pulse Rate 77 90 75 Respiratory Rate Blood Pressure 167/102 O2 Sat by Pulse 99 97 Oximetry 06/24/20 06/24/20 06/24/20 06:29 06:34 06:39 Temperature Pulse Rate 77 76 73 Respiratory Rate Blood Pressure 159/94 O2 Sat by Pulse 99 99 99 Oximetry 06/24/20 06/24/20 06/24/20 06:41 06:44 06:49 Temperature Pulse Rate 75 81 69 Respiratory Rate Blood Pressure 148/88 O2 Sat by Pulse 99 99 Oximetry 06/24/20 06/24/20 06/24/20 06:54 06:56 06:59 Temperature Pulse Rate 71 77 73 Respiratory Rate Blood Pressure 148/91 O2 Sat by Pulse 99 99 Oximetry 06/24/20 06/24/20 06/24/20 07:04 07:09 07:11 Temperature Pulse Rate 71 70 77 Respiratory Rate Blood Pressure 141/74 O2 Sat by Pulse 99 99 Oximetry 06/24/20 06/24/20 06/24/20 07:14 07:19 07:24 Temperature Pulse Rate 76 74 74 Respiratory Rate Blood Pressure O2 Sat by Pulse 99 99 99 Oximetry 06/24/20 06/24/20 06/24/20 07:25 07:26 07:29 Temperature 98.9 F Pulse Rate 76 74 Respiratory 20 Rate Blood Pressure 148/92 O2 Sat by Pulse 99 99 Oximetry 06/24/20 06/24/20 06/24/20 07:34 07:39 07:41 Temperature Pulse Rate 78 74 79 Respiratory Rate Blood Pressure 153/91 O2 Sat by Pulse 99 99 Oximetry 06/24/20 06/24/20 07:44 07:49 Temperature Pulse Rate 89 76 Respiratory Rate Blood Pressure O2 Sat by Pulse 99 99 Oximetry - Exam Cardiovascular: Regular rate Lungs: Clear to auscultation, Normal air movement Abdomen: Present: normal appearance, soft Vulva: both: normal Uterus: Present: normal, fundal height above umbilicus FHR: auscultation normal, category 1 Uterine Contraction Monitor Mode: External Uterine Contraction Pattern: Absent Uterine Tone Measurement Phase: Resting Extremities: normal - Labs Labs: Abnormal Labs 06/21/20 06/22/20 06/22/20 Unknown 00:57 07:18 RBC 3.35 L MCHC 35 H RDW 13.1 L Magnesium 4.10 H 4.80 H Ur Total Protein 24 Hr 06/22/20 06/22/20 15:01 15:10 RBC MCHC RDW Magnesium 5.20 H Ur Total Protein 24 Hr 250.00 H
[2020-06-24] MEDS: ACETAMINOPHEN 500 MG TAB PO PRN (08:21)
[2020-06-24] MEDS ORDERED: MAGNESIUM SULFATE 40GM/1000ML 40 GM/1,000 ML BAG IV ONE (08:40)
[2020-06-24] MEDS ORDERED: MAGNESIUM SULFATE 4 GM/100 ML BAG IV ONE ×2 (08:40→08:41)
--- NOTE | 2020-06-24 08:45 | Event Note ---
Date: 06/24/20 b/p now 170's/110's, second dose of hydralizine given and mag ordered to be restarted. Dr. Kim informed of pt's status and request to stop IOL and to proceed w/ c/s
[2020-06-24] MEDS ORDERED: MAGNESIUM SULFATE 40GM/1000ML 40 GM/1,000 ML BAG IV SCH (09:00)
[2020-06-24] MEDS ORDERED: METOCLOPRAMIDE 10 MG/2 ML INJ IV ONE (09:01)
[2020-06-24] MEDS ORDERED: FAMOTIDINE 20 MG/2 ML INJ IV ONE (09:01)
[2020-06-24] MEDS ORDERED: BICITRA ORAL LIQD 30ML PO ONE (09:01)
--- NOTE | 2020-06-24 09:07 | Event Note ---
Date: 06/24/20 pt continues to desires elective c/s. reviewed again that a c/s is major abd surgery that could result in injury to her surrounding organs and/or a blood transfusion. Consent signed, pre-op orders in EMR. Dr. Julio laws to [facility].
[2020-06-24] MEDS ORDERED: LACTATED RINGERS 1,000 ML IV SCH (09:15)
[2020-06-24] MEDS ORDERED: OXYTOCIN DRIP 30 UNITS/500 ML BAG IV SCH (10:00)
[2020-06-24] MEDS ORDERED: ceFAZolin/Water 2 GM/20 ML 2 GM/20 ML SYRINGE IV NR (10:00)
[2020-06-24] MEDS ORDERED: PROMETHAZINE 25 MG RECT SUPP PR PRN (10:18)
[2020-06-24] MEDS ORDERED: NALOXONE 0.4 MG/1 ML INJ IV PRN (10:18)
[2020-06-24] MEDS ORDERED: PROMETHAZINE 25 MG TAB PO PRN (10:18)
[2020-06-24] MEDS ORDERED: diphenhydrAMINE 50 MG/ML VIAL IV PRN (10:18)
[2020-06-24] MEDS ORDERED: NalbUPHINE 10 MG/1 ML INJ IV PRN (10:18)
--- NOTE | 2020-06-24 10:22 | Anesthesia Day of Surgery ---
Anesthesia Day of Surgery - Day of Surgery Patient Examined: Yes Patient H&P Reviewed: Yes Patient is NPO: Yes Beta Blockers: No Cardiac Clearance: No Pulmonary Clearance: No Mo's Test: N/A
[2020-06-24] MEDS ORDERED: KETOROLAC 30 MG/1 ML INJ ONE (10:33)
[2020-06-24] MEDS ORDERED: ONDANSETRON 4 MG/2 ML INJ ONE (10:33)
[2020-06-24] MEDS ORDERED: MORPHINE PF 10MG/10 ML AMPULE ONE (10:33)
--- NOTE | 2020-06-24 10:38 | Event Note ---
Date: 06/24/20 I again d/w risk, benefits and alternatives to including but not limited to bleeding, infection, injury to uterus, ovaries, bladder bowel, tubes, baby, need for transfusion, need for repeat in future pregnancies. Pt expressed understanding and questions were addressed and answered. Now awaiting recent set of labs that were ordered but are just now being drawn. Will proceed once labs are back and reviewed. Consent signed and placed on the chart.
[2020-06-24 10:48] LABS: Basophils % (Auto) 0.3 % (0.0-1.8); Eosinophils % (Auto) 0.2 % (0.0-4.3); Hemoglobin 11.6 gm/dl (10.1-14.3); Lymphocytes # (Auto) 1.3 K/mm3 (1.2-5.4); Lymphocytes % (Auto) 13.2 % (13.4-35.0); Mean Corpuscular HGB Conc 34 % (30-34); Mean Corpuscular Volume 94 fl (79-97); Monocytes # (Auto) 1.1 K/mm3 (0.0-0.8); Monocytes % (Auto) 11.3 % (0.0-7.3); Platelet Count 193 K/mm3 (140-440); Red Blood Count 3.64 M/mm3 (3.65-5.03); Red Cell Distribution Width 13.1 % (13.2-15.2)
--- NOTE | 2020-06-24 10:54 | Anesthesia Consultation ---
Anesthesia Consult and Med Hx Date of service: 06/24/20 - Airway Anesthetic Teeth Evaluation: Good ROM Head & Neck: Adequate Mental/Hyoid Distance: Adequate Mallampati Class: Class II Intubation Access Assessment: Probably Good - Pulmonary Exam CTA: Yes - Cardiac Exam Cardiac Exam: RRR - Pre-Operative Health Status ASA Pre-Surgery Classification: ASA2 Proposed Anesthetic Plan: Spinal - Pulmonary Hx Smoking: No Hx Asthma: No Hx Pneumonia: No - Cardiovascular System Hx Hypertension: Yes (pre-eclampsia) Hx Heart Attack/AMI: No Hx Angina: No - Central Nervous System Hx Seizures: No Hx Psychiatric Problems: No - Gastrointestinal Hx Gastroesophageal Reflux Disease: No - Endocrine Hx Renal Disease: No Hx Insulin Dependent Diabetes: No Hx Non-Insulin Dependent Diabetes: No Hx Hypothyroidism: No Hx Hyperthyroidism: No - Hematic Hx Anemia: No Hx Sickle Cell Disease: Yes (trait) - Other Systems Hx Alcohol Use: No Hx Substance Use: Yes (Marijuana) - Additional Comments Anesthesia Medical History Comments: scoliosis
[2020-06-24 11:03] LABS: Alanine Aminotransferase 12 units/L (7-56); Albumin 3.2 g/dL (3.9-5); Blood Urea Nitrogen 8 mg/dL (7-17); Calcium 8.3 mg/dL (8.4-10.2); Hemolysis Index 15
[2020-06-24 11:08] LABS: BUN/Creatinine Ratio 16
[2020-06-24] MEDS ORDERED: ceFAZolin/STERILE WATER 2 GM/20 ML SYRINGE IV ONE (11:09)
--- NOTE | 2020-06-24 11:34 | Progress Note ---
Spinal Anesthesia Block - Spinal Anesthesia Block Start Time: 11:09 Stop Time: 11:24 Performed by:: BEATRIZ BROWN Procedure: Spinal anesthesia block is being performed for [C/S]. H&P, labs have been reviewed. Patient's questions and concerns have been answered. Informed consent has been performed. Timeout has was performed. Patient in sitting position on side of bed. Sterile prep and drape was performed. 3 mL 1% lidocaine skin wheal at L [3]-L [4]. Needle introducer advanced. 25-gauge spinal needle advanced, [+] CSF [-] blood. [Marcaine 12mg, Precedex 5mcg, and Duramorph 0.2mg] Spinal dose was given. All needles removed. Patient tolerated procedure well.
[2020-06-24] MEDS ORDERED: SODIUM CHLORIDE 0.9% IRR 1,500 ML BOTTLE IR ONE (11:45)
[2020-06-24] MEDS ORDERED: WATER FOR IRRIG STERILE 1,500 ML BOTTLE IR ONE (11:45)
[2020-06-24] MEDS ORDERED: LACTATED RINGERS 1,000 ML ONE (12:25)
[2020-06-24] MEDS ORDERED: LANOLIN/ZINC/DIMETHICONE (LANSINOH) 7 GM TP PRN (12:29)
[2020-06-24] MEDS ORDERED: WITCH HAZEL/ GLYCERIN PAD TP PRN (12:29)
[2020-06-24] MEDS ORDERED: KETOROLAC 30 MG/1 ML INJ IV PRN (12:29)
--- NOTE | 2020-06-24 12:29 | Operative Report ---
Operative Report Operative Report: Date of procedure: 06/24/2020 Pre-operative diagnosis: 35 weeks gestation Gestational hypertension with severe features Post-operative diagnosis: Same Procedure name(s): Primary low transverse section via Pfannenstiel skin incision Surgeon: Dr. Kim Washer Assembler: ADRI Anesthesia: Spinal EBL: 800 mL Urine output: 200 mL of clear urine out at the end of the procedure Fluids: 1800 mL Findings: Liveborn female Apgars of 7 and 8 at 1 and 5 minutes weight 4 pounds 7 ounces Normal uterus Anterior placenta Grossly normal fallopian tubes and ovaries bilaterally Indications: Patient was admitted and given a diagnosis of gestational hypertension with severe features. Patient underwent induction of labor for approximately 2-1/2 days without any cervical change or progression to labor. Patient no longer desired induction of labor on today and desired delivery via section. All risk benefits and alternatives were discussed with the patient. Consents were signed and placed on the chart. Procedure: Patient was taking to the operating room. Patient was then prepped and draped in sterile fashion after anesthesia was found to be adequate. A low transverse skin incision was made with the scalpel and carried down to the underlying layer of fascia with the Bovie. The fascia was then incised in the midline and this incision was extended bilaterally with the Bovie. The superior aspect of the fascia was grasped with Lul clamps tented upward and dissected off of the anterior rectus muscles with the scalpel. In similar fashion the inferior aspect of the fascia was grasped with Lul clamps tented upward and dissected off of the anterior rectus muscles. The rectus muscles were then bluntly divided in the midline. The peritoneum was identified and entered into sharply. The Jose Luis retractor was placed. The bladder blade was placed. T A lower transverse uterine incision was made with the scalpel and extended bilaterally with blunt dissection. Artificial rupture of membranes was performed yielding [clear amniotic fluid]. The 's head was then delivered atraumatically. The anterior shoulder and rest of delivered without difficulty. The umbilical cord was clamped x2. The cord was cut. The was then placed in sterile bassinet. [The cord blood was collected.] The placenta was manually extracted in its entirety. The uterus was exteriorized and cleared of all clots and debris. The uterine incision was closed using 0 Vicryl in a running locking fashion. A second imbricating layer of the same suture was then created. The posterior cul-de-sac was copiously irrigated. The uterus was returned to the abdomen. The gutters were also irrigated. The Jose Luis retractor was removed from the abdomen. the anterior rectus muscles were reapproximated using 3-0 Vicryl. The anterior rectus fascia was reapproximated using 0 Vicryl in a running fashion. The subcuticular fat was reapproximated using 2-0 Vicryl in a running fashion. The skin was reapproximated with 4-0 Monocryl in a subcuticular stitch. The patient tolerated the procedure well. Sponge lap and needle counts were all correct x3. Patient was taken to the recovery room awake and in stable condition.
[2020-06-24] MEDS ORDERED: D5W/LACTATED RINGERS 1,000 ML IV SCH (13:00)
[2020-06-24] MEDS: ceFAZolin/NS 1 GM/50 ML 1 GM/50 ML BAG IV SCH (18:52)
--- NOTE | 2020-06-24 19:20 | Event Note ---
Date: 06/24/20 b/p's remaining elevated after c/s, labetalol increased to 300mg BID. Pt received labetalol 200mg @ 1000 and then another 100mg @ 1538. Will monitor after 2200 full dose of labetalol 300mg and if b/p's are not controlled will add procardia.
[2020-06-25] MEDS: ceFAZolin/NS 1 GM/50 ML 1 GM/50 ML BAG IV SCH (03:15)
[2020-06-25] MEDS: ACETAMINOPHEN 500 MG TAB PO PRN (03:33)
[2020-06-25 05:05] LABS: Hematocrit 29.9 % (30.3-42.9); Hemoglobin 10.1 gm/dl (10.1-14.3)
--- NOTE | 2020-06-25 05:25 | Progress Note ---
Assessment and Plan patient resting w/o complaints. dressing d&I. [id number]'s/80-90's. Lochia scant. Urine output adequate. - Patient Problems (1) Pre-eclampsia Current Visit: Yes Status: Acute Qualifiers: Trimester: third trimester Qualified Code(s): O14.93 - Unspecified pre- eclampsia, third trimester Plan to address problem: Continue magnesium sulfate until 0900 continue labetalol 300 mg PO BID Closely monitor for s/s worsening pre-e (2) delivery delivered Onset Date: ~06/24/20 Current Visit: Yes Status: Acute Plan to address problem: postop H&H 10.1/29.9 Continue postop pathway Advance diet and activity as tolerated Subjective - Subjective Date of service: 06/25/20 Principal diagnosis: postop day#1 s/p primary c/s, pre-e Patient reports: appetite normal, pain well controlled, no nauseated : doing well Objective - Vital Signs Latest vital signs: Vital Signs Temp Pulse Resp BP Pulse Ox 06/25/20 05:19 85 100 06/25/20 05:14 86 100 06/25/20 05:11 83 131/85 06/25/20 05:09 89 100 06/25/20 05:04 93 H 100 06/25/20 05:02 88 90 06/25/20 04:59 88 99 06/25/20 04:54 89 100 06/25/20 04:49 86 100 06/25/20 04:44 98 H 87 06/25/20 04:42 92 H 91 06/25/20 04:41 93 H 137/91 06/25/20 04:39 98 H 81 L 06/25/20 04:36 104 H 93 06/25/20 04:34 87 99 06/25/20 04:31 91 H 90 06/25/20 04:29 96 H 90 06/25/20 04:25 101 H 86 06/25/20 04:24 95 H 92 06/25/20 04:20 101 H 87 06/25/20 04:19 99 H 100 06/25/20 04:14 90 100 06/25/20 04:13 98 H 90 06/25/20 04:11 86 142/94 06/25/20 04:09 91 H 100 06/25/20 04:04 90 99 06/25/20 03:59 94 H 100 06/25/20 03:54 86 99 06/25/20 03:52 94 H 93 06/25/20 03:49 88 100 06/25/20 03:44 92 H 100 06/25/20 03:41 90 142/89 06/25/20 03:39 89 100 06/25/20 03:34 92 H 100 06/25/20 03:29 99 H 100 06/25/20 03:24 90 100 06/25/20 03:23 98.0 F 18 06/25/20 03:19 103 H 100 06/25/20 03:14 94 H 100 06/25/20 03:11 90 140/90 06/25/20 03:09 85 99 06/25/20 03:04 84 100 06/25/20 02:59 86 99 06/25/20 02:54 78 100 06/25/20 02:49 87 99 06/25/20 02:44 85 99 06/25/20 02:41 86 137/91 06/25/20 02:39 83 99 06/25/20 02:34 83 98 06/25/20 02:29 79 99 06/25/20 02:24 81 99 06/25/20 02:19 81 98 06/25/20 02:14 89 99 06/25/20 02:12 96 H 124/102 06/25/20 02:09 82 99 06/25/20 02:04 81 99 06/25/20 01:59 85 98 06/25/20 01:54 84 98 06/25/20 01:49 83 98 06/25/20 01:44 84 99 06/25/20 01:41 84 134/87 06/25/20 01:39 82 99 06/25/20 01:34 84 98 06/25/20 01:29 82 99 06/25/20 01:24 80 98 06/25/20 01:19 82 99 06/25/20 01:14 82 100 06/25/20 01:11 97 H 141/94 06/25/20 01:09 94 H 99 06/25/20 01:06 93 H 92 06/25/20 01:04 89 100 06/25/20 00:59 87 99 06/25/20 00:54 87 100 06/25/20 00:49 86 99 06/25/20 00:44 90 100 06/25/20 00:42 88 141/90 02 00:39 90 99 06/25/20 00:34 87 99 06/25/20 00:29 85 100 06/25/20 00:24 89 100 06/25/20 00:19 100 H 100 06/25/20 00:14 87 99 02 00:12 90 134/82 06/25/20 00:09 96 H 98 06/25/20 00:04 86 99 06/25/20 00:00 98.1 F 18 06/24/20 23:59 90 100 02 23:54 93 H 99 02 23:49 91 H 100 02 23:44 86 98 02 23:42 87 132/83 06/24/20 23:39 87 98 02 23:34 85 98 06/24/20 23:29 86 99 06/24/20 23:24 86 98 06/24/20 23:19 86 98 06/24/20 23:14 90 99 02 23:12 89 132/84 02 23:09 94 H 100 02 23:04 89 99 02 22:59 95 H 99 02 22:54 90 98 06/24/20 22:49 86 98 06/24/20 22:44 88 99 0221 22:41 83 138/91 02 22:39 93 H 100 0221 22:34 102 H 99 0221 22:29 89 100 0221 22:24 97 H 100 0221 22:19 100 H 100 022021 22:14 101 H 100 022021 22:12 100 H 132/82 02 22:09 89 100 022021 22:06 84 153/95 022021 22:05 95 H 153/95 02 22:04 101 H 100 022021 22:03 67 54 L 02 21:59 91 H 100 022021 21:54 91 H 100 02/20/21 21:49 97 H 100 02/20/21 21:44 88 100 02/20/21 21:39 91 H 100 02/20/21 21:34 81 100 02/20/21 21:29 93 H 100 02/20/21 21:24 90 100 02/20/21 21:19 91 H 100 02/20/21 21:14 92 H 100 02/20/21 21:11 88 141/88 0220/21 21:09 92 H 100 0220/21 21:04 99 H 100 0220/21 20:59 91 H 100 0220/21 20:54 95 H 100 02/20/21 20:51 89 85 02/20/21 20:49 87 88 0220/21 20:45 102 H 93 0220/21 20:44 103 H 100 0220/21 20:41 91 H 141/94 0220/21 20:39 84 100 02/20/21 20:38 84 88 0220/21 20:34 84 100 0220/21 20:29 94 H 100 0220/21 20:24 96 H 155/99 100 02/20/21 20:21 95 H 91 0220/21 20:19 90 100 02/20/21 20:14 104 H 99 02/20/21 20:09 98 H 99 02/20/21 20:04 90 100 02/20/21 19:59 88 99 02/20/21 19:54 80 100 02/20/21 19:49 79 99 02/20/21 19:44 76 100 02/20/21 19:41 73 141/98 0220/21 19:39 73 100 02/20/21 19:34 74 100 02/20/21 19:29 76 99 02/20/21 19:24 74 100 02/20/21 19:19 75 99 02/20/21 19:14 75 99 02/20/21 19:12 75 141/95 02/20/21 19:09 76 99 02/20/21 19:04 73 100 02/20/21 19:01 97.7 F 0220/21 18:59 92 H 100 02/20/21 18:54 72 100 02/20/21 18:49 69 100 02/20/21 18:44 85 99 02/20/21 18:42 74 147/96 0220/21 18:39 74 100 02/20/21 18:34 77 100 02/20/21 18:29 82 100 02/20/21 18:24 81 100 02/20/21 18:19 73 100 02/20/21 18:14 70 100 02/20/21 18:12 76 155/102 0220/21 18:09 76 100 0220/21 18:04 78 100 0220/21 17:59 75 100 0220/21 17:54 81 100 02/20/21 17:49 86 100 0220/21 17:44 83 99 0220/21 17:40 76 146/99 0220/21 17:39 97.5 F L 76 100 20/21 17:34 78 100 0220/21 17:29 69 100 0220/21 17:25 78 142/98 0220/21 17:24 70 100 0220/21 17:23 85 91 0220/21 17:19 87 100 0220/21 17:14 74 99 0220/21 17:10 67 143/97 0220/21 17:09 68 99 0220/21 17:04 75 100 0220/21 16:59 81 100 0220/21 16:55 74 149/97 0220/21 16:54 73 100 0220/21 16:49 73 99 0220/21 16:44 76 100 0220/21 16:40 74 142/91 0220/21 16:39 75 100 0220/21 16:34 71 100 0220/21 16:29 74 99 02/20/21 16:26 71 91 0220/21 16:25 63 151/101 0220/21 16:24 66 99 02/20/21 16:22 71 163/100 0220/21 16:19 72 100 02/20/21 16:14 72 100 02/20/21 16:11 66 163/100 0220/21 16:09 72 97 02/20/21 16:06 84 93 02/20/21 16:04 70 100 0220/21 15:59 66 87 02/20/21 15:58 74 86 0220/21 15:55 82 149/107 0220/21 15:54 82 88 06/24/20 15:52 78 80 L 06/24/20 15:49 88 99 06/24/20 15:44 66 99 06/24/20 15:41 75 143/107 06/24/20 15:39 85 162/103 100 06/24/20 15:38 78 162/103 06/24/20 15:34 63 99 06/24/20 15:29 82 100 06/24/20 15:25 63 157/98 06/24/20 15:24 63 99 06/24/20 15:19 67 100 06/24/20 15:14 67 100 06/24/20 15:13 79 87 06/24/20 15:11 73 172/101 06/24/20 15:09 82 100 06/24/20 15:04 61 100 06/24/20 14:59 73 83 L 06/24/20 14:55 70 154/106 06/24/20 14:54 67 97 06/24/20 14:53 77 89 06/24/20 14:49 66 98 06/24/20 14:45 63 91 06/24/20 14:44 64 90 06/24/20 14:40 65 152/103 06/24/20 14:39 73 96 06/24/20 14:34 71 99 06/24/20 14:29 66 99 06/24/20 14:25 61 145/101 06/24/20 14:24 63 95 06/24/20 14:23 66 89 06/24/20 14:19 65 98 06/24/20 14:17 65 89 06/24/20 14:14 60 100 06/24/20 14:09 65 166/102 100 06/24/20 13:40 97.5 F L 06/24/20 13:30 63 14 143/92 98 06/24/20 13:15 63 13 143/94 100 06/24/20 13:00 97.5 F L 65 12 133/90 100 06/24/20 12:45 67 10 L 132/92 99 06/24/20 12:40 74 12 112/75 99 06/24/20 12:35 97.5 F L 73 12 123/87 99 06/24/20 11:03 97 H 142/85 02/20/21 10:59 95 H 99 02/20/21 10:54 103 H 99 02/20/21 10:49 87 98 02/20/21 10:48 92 H 139/91 02/20/21 10:44 94 H 98 02/20/21 10:39 86 98 02/20/21 10:34 96 H 98 02/20/21 10:29 92 H 99 02/20/21 10:24 103 H 99 02/20/21 10:19 91 H 99 02/20/21 10:18 83 142/87 02/20/21 10:14 94 H 99 02/20/21 10:09 93 H 99 02/20/21 10:04 104 H 99 02/20/21 09:59 96 H 99 02/20/21 09:54 92 H 99 02/20/21 09:50 89 146/93 02/20/21 09:49 87 146/93 100 02/20/21 09:44 90 99 02/20/21 09:42 86 141/91 02/20/21 09:39 97 H 99 02/20/21 09:37 88 141/91 02/20/21 09:34 93 H 99 02/20/21 09:31 96 H 136/77 02/20/21 09:29 92 H 98 02/20/21 09:27 105 H 145/93 02/20/21 09:24 95 H 98 02/20/21 09:21 86 149/89 02/20/21 09:19 97 H 98 02/20/21 09:18 98.2 F 18 98 02/20/21 09:16 86 152/87 02/20/21 09:14 92 H 98 02/20/21 09:11 80 154/96 02/20/21 09:09 90 99 02/20/21 09:06 81 151/96 02/20/21 09:04 83 98 02/20/21 08:59 78 99 02/20/21 08:56 77 157/101 02/20/21 08:54 84 99 02/20/21 08:49 69 99 02/20/21 08:46 71 167/106 02/20/21 08:44 76 98 02/20/21 08:41 73 167/106 02/20/21 08:39 71 100 02/20/21 08:38 74 173/111 02/20/21 08:34 69 99 02/20/21 08:29 73 99 02/20/21 08:26 65 174/111 02/20/21 08:24 77 99 02/20/21 08:21 18 02/20/21 08:19 72 99 02/20/21 08:14 80 100 02/20/21 08:11 77 150/98 02/20/21 08:09 73 99 02/20/21 08:04 75 99 02/20/21 07:59 74 99 02/20/21 07:56 81 156/90 02/20/21 07:54 74 99 02/20/21 07:49 76 99 02/20/21 07:44 89 99 02/20/21 07:41 79 153/91 02/20/21 07:39 74 99 02/20/21 07:34 78 99 02/20/21 07:29 74 99 02/20/21 07:26 76 148/92 02/20/21 07:25 98.9 F 20 99 02/20/21 07:24 74 99 02/20/21 07:19 74 99 02/20/21 07:14 76 99 02/20/21 07:11 77 141/74 02/20/21 07:09 70 99 02/20/21 07:04 71 99 02/20/21 06:59 73 99 02/20/21 06:56 77 148/91 02/20/21 06:54 71 99 02/20/21 06:49 69 99 02/20/21 06:44 81 99 02/20/21 06:41 75 148/88 02/20/21 06:39 73 99 02/20/21 06:34 76 159/94 99 02/20/21 06:29 77 99 02/20/21 06:26 75 167/102 02/20/21 06:24 90 97 02/20/21 06:19 77 99 02/20/21 06:15 76 94 02/20/21 06:14 76 97 02/20/21 06:10 76 151/90 02/20/21 06:09 76 96 02/20/21 06:03 81 98 02/20/21 06:01 94 H 163/100 92 02/20/21 05:58 69 97 02/20/21 05:53 77 100 02/20/21 05:51 69 80 L 06/24/20 05:50 66 176/109 06/24/20 05:48 68 100 06/24/20 05:45 77 34 L 06/24/20 05:43 67 99 06/24/20 05:38 69 97 06/24/20 05:36 71 87 06/24/20 05:33 67 176/109 99 06/24/20 05:29 78 91 06/24/20 05:28 64 99 06/24/20 05:25 66 164/93 06/24/20 05:23 66 99 Intake and Output 06/24/20 06/24/20 06/25/20 15:59 23:59 07:59 Intake Total 3611.667 50 Output Total 2250 500 1550 Balance 1361.667 -450 -1550 Intake: IV 3611.667 50 ANCEF/NS 1 GM/50 ML 1 gm 50 In 50 ml @ 100 mls/hr IV Q8H [facility] Rx#:[id number] Lactated Ringers 1,000 ml 1000 @ 125 mls/hr IV DIRECT [facility] Rx#:[id number] MAGNESIUM SULFATE 40GM/ 76.667 1000ML 40 gm In 1,000 ml @ 2 GM/HR 50 mls/hr IV DIRECT [facility] Rx#:[id number] Right Wrist 10 Output: Urine 2250 500 1550 Indwelling Catheter 1550 500 Uretheral (Genao) 250 Void 1550 Other: Total, Output Amount 200 300 950 Estimated Blood Loss 800 - Exam Breasts: Present: normal Cardiovascular: Present: Regular rate Lungs: Present: Normal air movement Abdomen: Present: normal appearance, soft. Absent: distention, tenderness, guarding Vulva: both: normal Uterus: Present: normal, firm, fundal height below umbilicus Extremities: Present: normal Deep Tendon Reflex Grade: Normal +2 Incision: Present: normal, dry, dressed - Labs Labs: Abnormal lab results 06/24/20 06/24/20 06/24/20 Range/Units 10:35 10:35 10:35 RBC 3.64 L (3.65-5.03) M/mm3 Hct (30.3-42.9) % RDW 13.1 L (13.2-15.2) % Lymph % (Auto) 13.2 L (13.4-35.0) % [place] % (Auto) 11.3 H (0.0-7.3) % [place] # (Auto) 1.1 H (0.0-0.8) K/mm3 Seg Neutrophils % 75.0 H (40.0-70.0) % Sodium 136 L (137-145) mmol/L Carbon Dioxide 21 L (22-30) mmol/L Creatinine 0.5 L (0.6-1.2) mg/dL Calcium 8.3 L (8.4-10.2) mg/dL Magnesium 3.30 H (1.7-2.3) mg/dL Total Protein 6.1 L (6.3-8.2) g/dL Albumin 3.2 L (3.9-5) g/dL 06/24/20 06/24/20 06/25/20 Range/Units 16:10 21:30 03:59 RBC (3.65-5.03) M/mm3 Hct 29.9 L (30.3-42.9) % RDW (13.2-15.2) % Lymph % (Auto) (13.4-35.0) % [place] % (Auto) (0.0-7.3) % [place] # (Auto) (0.0-0.8) K/mm3 Seg Neutrophils % (40.0-70.0) % Sodium (137-145) mmol/L Carbon Dioxide (22-30) mmol/L Creatinine (0.6-1.2) mg/dL Calcium (8.4-10.2) mg/dL Magnesium 3.60 H 4.40 H (1.7-2.3) mg/dL Total Protein (6.3-8.2) g/dL Albumin (3.9-5) g/dL
[2020-06-25] MEDS: LACTATED RINGERS 1,000 ML IV SCH (05:53)
--- NOTE | 2020-06-25 11:25 | Post Anesthesia Evaluation ---
- Post Anesthesia Evaluation Patient Participated: Yes Airway Patent: Yes Stable Respiratory Function: Yes Nausea/Vomiting: No Temp > 96.8F: Yes Pain Manageable: Yes Adequeate Hydration: Yes Anesthesia Complications: No Block Receding Appropriately: Yes Patient on Ventilator: No
[2020-06-25] MEDS: IBUPROFEN 800 MG TAB PO PRN ×2 (14:37→22:02)
[2020-06-26] MEDS: PRENATAL VIT27-FE FUMARATE-FOLIC ACID VIT TAB PO SCH (09:08)
[2020-06-26] MEDS: HYDROcodone/ACETAMINOPHEN 5-325 MG TAB PO PRN ×2 (09:09→16:09)
[2020-06-26] MEDS: valACYclovir 500 MG TAB PO SCH (09:15)
--- NOTE | 2020-06-26 13:24 | Discharge Summary ---
Providers - Providers Date of Admission: 06/21/20 14:00 Attending physician: VAN HUFF 06/22/20 08:07 Consult to Physician [CONS] Routine Comment: Consulting Provider: NIXON PERKINS Physician Instructions: Reason For Exam: wellbeing Primary care physician: VAN HUFF Hospitalization Reason for admission: active labor Procedure: primary low transverse Episiotomy: none Laceration: none Incision: normal, dry, intact Other procedures: none complications: other (Magnsium infusion after delivery.) Discharge diagnosis: delivery baby: female Pertinent studies: Pt denies ZUÑIGA, blurred vision, spots before her eyes, chest pain, shortness of breath, and upper abdominal pain. We discussed how to take a proper blood pressure at home and when to call the sales professional bilingual providers with questions and concerns. Hospital course: S: Pt doing well. Ambulating, voiding, and passing flatus okay. BC: Pills. O: VSS. Adequate I&O's. H/H 10.1/29.9. Fundus firm, minimal bleeding noted. Incision: no s/sx of infection, no drainage noted. A: 25 y.o. s/p primary d/t failed IOL. S/p mag infusion d/t pre eclampsia, now in good condition to be discharged home. P: Discharge home with instructions. Pt to schedule an incision check and blood pressure check in the office in 1 week. Condition at discharge: Good Disposition: DC-01 TO HOME OR SELFCARE Plan - Discharge Medications Prescriptions: Docusate Sodium [Colace] 100 mg PO BID PRN #60 capsule PRN Reason: Constipation Ferrous Sulfate [Feosol 325 MG tab] 325 mg PO QDAY #60 tablet Labetalol HCl [Labetalol 300mg TAB] 300 mg PO BID #60 tablet Ibuprofen [Motrin 800 MG tab] 800 mg PO Q8HR PRN #30 tablet PRN Reason: Pain, Moderate (4-6) oxyCODONE /ACETAMINOPHEN [Percocet 5/325] 1 tab PO Q4HR #30 tab - Provider Discharge Summary Activity: routine, no sex for 6 weeks, no heavy lifting 4 weeks, no strenuous exercise Diet: routine Instructions: routine Additional instructions: [] Smoking cessation referral if applicable(refer to patient education folder for contact #) [] Refer to [facility] Booklet Call your doctor immediately for: * Fever > 100.5 * Heavy vaginal bleeding ( >1 pad per hour) * Severe persistent headache * Shortness of breath * Reddened, hot, painful area to leg or breast * Drainage or odor from incision. * Keep incision clean and dry at all times and follow doctor's instructions regarding bathing/showering Congratulations on your baby girl! Please schedule an incision check and blood pressure check in the office in 1 week. If you have any questions or concerns after discharge, please do not hesitate to call the office at [phone]. Taking your blood pressure at home Please take your blood pressure once daily Take your blood pressure medication as written by your provider Taking your blood pressure with a cuff monitor: 1. Put the blood pressure cuff on your arm. 2. Sit with your legs uncrossed and feet flat on the ground. Make sure your arm is relaxed on a table or your kitchen table and bent at a 90 degree angle. 3. After 5-10 minutes push the button to take your blood pressure. While you are at home, if you experience a headache, blurred vision, spots before your eyes, chest pain, shortness of breath, and pain in your upper belly, and/or your blood pressure is 140/90 or greater, please call the on-call provider immediately for further instructions. - Follow up plan Follow up: VAN HUFF MD [Primary Care Provider] - 7 Days Forms: [facility] Discharge Summary
[2020-06-26] MEDS: IBUPROFEN 800 MG TAB PO PRN (21:51)
[2020-06-27] MEDS: PRENATAL VIT27-FE FUMARATE-FOLIC ACID VIT TAB PO SCH (09:18)
[2020-06-27] MEDS: valACYclovir 500 MG TAB PO SCH (10:20)
[2020-06-27 13:13] VITALS: BP 148/94
== END 2020-06-27 15:42 | disposition home or self-care (01) | DRG 787 ==
LOC: TRG 11:46 → APU 11:47 → LD 14:00 → TRG 14:00 → OB 06-25 16:40
PROVIDERS: ADMIT Obstetrics & Gynecology; ATTEND Obstetrics & Gynecology
PROC: 10D00Z1 Extraction of Products of Conception, Low, Open Approach (ICD-10-PCS; principal; 2020-06-24)
DX: O13.4 Gestational [pregnancy-induced] hypertension without significant proteinuria, complicating childbirth (principal); O98.32 Other infections with a predominantly sexual mode of transmission complicating childbirth; Z20.822 Contact with and (suspected) exposure to COVID-19; A60.04 Herpesviral vulvovaginitis; O99.02 Anemia complicating childbirth; D57.3 Sickle-cell trait; O99.324 Drug use complicating childbirth; F12.90 Cannabis use, unspecified, uncomplicated; Z3A.35 35 weeks gestation of pregnancy; Z82.49 Family history of ischemic heart disease and other diseases of the circulatory system; Z37.0 Single live birth; O60.14X0 Preterm labor third trimester with preterm delivery third trimester, not applicable or unspecified
CPT/HCPCS: 36415; 59200; 71045; 76816; 80053; 81001; 82565; 83615; 83735; 84156; 84450; 84460; 84550; 85014; 85018; 85025; 85027; 86850; 86900; 86901; 87116; 88307; G0378; J0290; J0360; J0595; J0690; J0702; J1200; J1885; J2274; J2405; J2590; J2765; J3475; J3490; J7120; U0003

== ENCOUNTER 2021-10-16 08:36 | Inpatient (IN) | payer OTHER ==
[2021-10-10 12:07] LABS: Hematocrit 34.4 % (30.3-42.9); Hemoglobin 11.7 gm/dl (10.1-14.3); Mean Corpuscular HGB Conc 34 % (30-34); Mean Corpuscular Volume 91 fl (79-97); Platelet Count 166 K/mm3 (140-440); Red Cell Distribution Width 12.5 % (13.2-15.2)
--- NOTE | 2021-10-15 15:24 | History and Physical Report ---
History of Present Illness Date of examination: 10/10/21 Chief complaint: Repeat delivery History of present illness: Past History : 2 Term Births: 0 Premature Births: 1 Living Children: 1 Para: 0 Mult. Births: 0 Prev : 0 Aborta: 0 Elect. Ab: 0 Spont. Ab: 0 Ectopics: 0 # 1 Delivery date: 06/24/2020 Weeks Gestation: 35.4 Delivery type: Anesthesia type: SPINAL Delivery location: [facility] Sex: female weight: 4.44 Comments: SEVERE GESTATIONAL HYPERTENSION Past History : 2 Term Births: 0 Premature Births: 1 Living Children: 1 Para: 0 Mult. Births: 0 Prev : 0 Aborta: 0 Elect. Ab: 0 Spont. 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 Surgery [facility] for pelvic pain ([facility]) Normal Risk Factors: Smoked Tobacco Use: Never smoker Smokeless Tobacco Use: Never Passive Smoke Exposure: no HIV High Risk Behavior: low risk Caffeine Use: 0 drinks per day Exercise: no Seatbelt Use: 100 % Alcohol Use: no Past Medical History Anesthesia Complications: negative Anemia: negative Autoimmune Disorder: negative Bleeding Disorder: negative Blood Transfusions: negative Breast Disease: negative Diabetes: negative Heart Disease: negative Hypertension: positive, gHTN Hepatitis/Liver Disease: negative Kidney Disease/UTI: negative Neurologic/Epilepsy/Migraines: negative Phlebitis/Varicosities: negative Psychiatric: negative Pulmonary Disease/Asthma: negative Thyroid Disease: negative Hospitalizations: negative Surgery (Non-inspector water pollution control): negative Abnormal PAP: negative GRAHAM Exposure: negative Infertility: negative Uterine Anomaly: negative Uterine Surgery (not C/S): negative Other Gynecologic Problems: negative Social Hx: Marital Status: Single Children: 0 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 of genital herpes: yes Partner hx. of genital herpes: no Rash, Viral, or Febrile illness since last LMP? no Varicella/Chicken Pox Status: Unknown TB Risk: no Genetic History Congenital Heart Defect: Mom: no Dad: no Kallie Disease: Mom: no Dad: no Thalassemia Mom: no Dad: no Neural Tube Defect Mom: no Dad: no Down's Syndrome Mom: no Dad: no Jacobo-Sachs Mom: no Dad: no Sickle Cell Disease/Trait Mom: no Dad: no Hemophilia Mom: no Dad: no Muscular Dystrophy Mom: no Dad: no Cystic Fibrosis Mom: no Dad: no Denny Chorea Mom: no Dad: no Mental Retardation Mom: no Dad: no Fragile X Mom: no Dad: no Other Genetic/Chromosomal Disorder Mom: no Dad: no Child w/other defect Mom: no Dad: no Enviromental Exposures Xray Exposure: no Medication, drug, or alcohol use since LMP: no Chemical/Other Exposure: no Exposure to Cat Liter: no Hx of Parvovirus (Fifth Disease): no Occupational Exposure to Children: none Active Medications: LEAH 0.35 MG ORAL TABLET (NORETHINDRONE) Take one tablet daily. VALACYCLOVIR HCL 1 GM ORAL TABLET (VALACYCLOVIR HCL) 1 tab po qd VITAMIN PLUS LOW IRON 27-1 MG ORAL TABLET ( VIT-FE FUMARATE-FA) 1 po q day as directed Current Allergies: No known allergies Physical Exam General appearance: well nourished, healthy appearing, no distress Chest/Lungs: respiratory effort normal, lungs clear to auscultation Abdomen/GI: soft, nontender Extremities: no discoloration or edema Care Plan: Supervision of other high risk pregnancies third trimester (GPS61-R35.893) Asymmetric intrauterine growth retardatn (ICD-764.90) (KCX84-U45.9) Resolved Maternal care for low transverse scar from previous delivery (ICD- 654.23) (BYE32-O71.211) consent sign for RCS Genetic disorder carrier (ICD-V83.89) (FVQ17-D25.8) fetus +Sickle cell disease. Patient and FOB + SMA carrier, patient states she was told fetus does not have SMA disease Sickle cell trait (ICD-282.5) (ACI69-H45.3) Impression & Recommendations: Problem # 1: Maternal care for low transverse scar from previous de chela (ICD-654.23) (MXZ31-Q23.211) Her updated medication list for this problem includes: Vitamin Plus Low Iron 27 Mg Iron- 1 Mg Tablet (Pnv,calcium 62-ydix-cydrm acid) ..... Take 1 tablet by mouth once a day as directed Consent reviewed and signed . The risks and alternatives for this surgery were reviewed with the patient. She was informed of, but not limited to, possible bleeding, infection, injury to bowel, bladder, ureters or other adjacent organs. The patient was instructed/informed the following: The normal length of hospital stay for this procedure. Nothing to eat or drink after midnight the evening prior to surgery. The usual discomforts associated with this procedure were detailed. Proper use of pain medicines was reviewed. Patient was given ample opportunity to have all her questions answered before signing informed consent. H&P dictated. Problem # 2: Sickle cell trait (ICD-282.5) (YZF06-V01.3) Problem # 3: Genital herpes (ICD-054.10) (YPE58-J01.00) The following medications were removed from the medication list: Valacyclovir 500 Mg Tablet (Valacyclovir) ..... Take 1 tablet by mouth twice a day as directed for three days with an outbreak only Her updated medication list for this problem includes: Valacyclovir 500 Mg Tablet (Valacyclovir) ..... Take 1 tablet by mouth twice a day Problem # 4: Genetic disorder carrier (ICD-V83.89) (URG35-D43.8) Medications Added to Medication List This Visit: 1) Valacyclovir 500 Mg Tablet (Valacyclovir) .... Take 1 tablet by mouth twice a day Past History - Obstetrical History : 2 Para: 1 Number of Pregnancies: 1 Number of Living Children: 1 Medications and Allergies Allergies Allergy/AdvReac Type Severity Reaction Status Date / Time No Known Allergies Allergy Verified 10/09/21 17:19 Home Medications Medication Instructions Recorded Confirmed Last Taken Type Vitamin 1 tab PO DAILY 06/21/20 10/09/21 06/21/20 History - Vital Signs Vital signs: Vital Signs Temp Pulse Resp BP Pulse Ox 98.3 F 92 H 16 123/76 100 10/10/21 11:20 10/10/21 11:20 10/10/21 11:20 10/10/21 11:20 10/10/21 11:20 Temp Pulse Resp BP Pulse Ox 98.3 F 92 H 16 123/76 100 10/10/21 11:20 10/10/21 11:20 10/10/21 11:20 10/10/21 11:20 10/10/21 11:20 Results Result Diagrams: 10/10/21 11:20 All other labs normal. Assessment and Plan - Patient Problems (1) 39 weeks gestation of Status: Acute (2) Previous delivery affecting Status: Chronic (3) Carrier of spinal muscular atrophy Status: Chronic (4) Sickle cell trait syndrome Onset Date: ~06/21/20 Status: Chronic (5) Herpes genitalis Onset Date: ~06/21/20 Status: Chronic Qualifiers: Herpes simplex infection site: vulvovaginitis Qualified Code(s): A60.04 - Herpesviral vulvovaginitis
[2021-10-16] MEDS ORDERED: ceFAZolin/Water 2 GM/20 ML 2 GM/20 ML SYRINGE IV SCH (09:00)
[2021-10-16] MEDS ORDERED: OXYTOCIN DRIP 30 UNITS/500 ML BAG IV SCH ×2 (09:00→21:00)
[2021-10-16] MEDS ORDERED: FAMOTIDINE 20 MG/2 ML INJ IV SCH (10:00)
[2021-10-16] MEDS ORDERED: METOCLOPRAMIDE 10 MG/2 ML INJ IV SCH (10:00)
[2021-10-16] MEDS ORDERED: BICITRA ORAL LIQD 30ML PO SCH (10:00)
[2021-10-16] MEDS: LACTATED RINGERS 1,000 ML IV SCH ×2 (11:03→12:03)
[2021-10-16] MEDS ORDERED: ONDANSETRON 4 MG/2 ML INJ ONE (13:14)
[2021-10-16] MEDS ORDERED: ceFAZolin/STERILE WATER 2 GM/20 ML SYRINGE IV ONE (13:25)
[2021-10-16] MEDS ORDERED: SODIUM CHLORIDE 0.9% IRR 1,500 ML BOTTLE IR ONE (13:45)
[2021-10-16] MEDS ORDERED: WATER FOR IRRIG STERILE 1,500 ML BOTTLE IR ONE (13:45)
[2021-10-16] MEDS ORDERED: ePHEDrine SULFATE 50 MG/1 ML INJ ONE (13:48)
[2021-10-16] MEDS ORDERED: BUPIVACAINE/PF (0.5%) 5 MG/1 ML 30 ML VIAL INFILTRATI ONE ×2 (14:27→14:56)
[2021-10-16] MEDS ORDERED: SODIUM CHLORIDE 0.9% 100 ML ONE (14:56)
[2021-10-16] MEDS ORDERED: LACTATED RINGERS 1,000 ML ONE (15:18)
--- NOTE | 2021-10-16 15:34 | Anesthesia Consultation ---
Anesthesia Consult and Med Hx Date of service: 10/16/21 - Airway Anesthetic Teeth Evaluation: Good ROM Head & Neck: Adequate Mental/Hyoid Distance: Adequate Mallampati Class: Class II Intubation Access Assessment: Good - Pulmonary Exam CTA: Yes - Cardiac Exam Cardiac Exam: RRR - Pre-Operative Health Status ASA Pre-Surgery Classification: ASA2 Proposed Anesthetic Plan: Spinal Nerve Block: Armando Tap Block - Pulmonary Hx Smoking: Yes (Marijuana) Hx Asthma: No COPD: No Hx Pneumonia: No - Cardiovascular System Hx Hypertension: Yes (Gestational HTN with last preg- resolved) Hx Heart Attack/AMI: No Hx Angina: No - Central Nervous System Hx Seizures: No Hx Psychiatric Problems: No - Gastrointestinal Hx Gastroesophageal Reflux Disease: No - Endocrine Hx Renal Disease: No Hx End Stage Renal Disease: No Hx Insulin Dependent Diabetes: No Hx Non-Insulin Dependent Diabetes: No Hx Hypothyroidism: No Hx Hyperthyroidism: No - Hematic Hx Anemia: No Hx Sickle Cell Disease: Yes (Trait only) - Other Systems Hx Alcohol Use: No Hx Substance Use: Yes (Marijuana daily unilt 04/2021) Hx Cancer: No
--- NOTE | 2021-10-16 15:34 | Anesthesia Day of Surgery ---
Anesthesia Day of Surgery - Day of Surgery Patient Examined: Yes Patient H&P Reviewed: Yes Patient is NPO: Yes
--- NOTE | 2021-10-16 15:36 | Progress Note ---
Spinal Anesthesia Block - Spinal Anesthesia Block Start Time: 13:22 Stop Time: 13:28 Performed by:: GLORY SORENSON Procedure: Spinal with .5mcg Precedex and 12mg .75 Bupivicaine. Attemots x 1, Patient tolerated well with no complications
--- NOTE | 2021-10-16 15:40 | Operative Report ---
Operative Report Operative Report: Date of operation: 10/16/2021 Pre-operative diagnosis: 1. Intrauterine at 39 weeks gestational age 2. Previous delivery desires repeat delivery 3. Sickle cell trait 4. BMI 34.5 kg/m2 5. Keloid scar from previous 6. SMA carrier Post-operative diagnosis: 1. Intrauterine at 39 weeks gestational age 2. Previous delivery desires repeat delivery 3. Sickle cell trait 4. BMI 34.5 kg/m2 5. Keloid scar from previous 6. SMA carrier Procedure name(s): Repeat low transverse uterine incision with excision of keloid scar Surgeon: Selina Pena MD Reel Man: [] Anesthesia: Spinal QBL: 520 mL Urine output: 100 mL of clear urine out at the end of the procedure Fluids: 2000 mL Findings: Liveborn female weight 6 Lbs. 5 oz. Apgars of 8 and 9 at one and 5 minutes Procedure: Patient was taking to the operating room. Spine anesthesia was placed. Patient was then prepped and draped in the usual sterile fashion Timeout was performed. Once an appropriate level of anesthesia was noted, a Pfannenstiel incision was made and extended the fascia which was incised and extended lateral direction. The overlying fascia was sharply dissected away from the underlying rectus muscles in the superior inferior direction. The midline was entered bluntly. Bladder blade was placed. Vesicouterine fold was incised with blunt dissection bladder flap was created. A transverse incision was made in the lower uterine segment and extended superolateral direction with finger fractionation. Clear fluid was noted. Infant was delivered from the cephalic position, ROT, using vacuum-assistance, only 1 application at 55 mmHg pressure, with spontaneous cry and excellent tone. Mouth and nose bulb suctioned. Cord was doubly clamped and cut infant was given to the resuscitation team present. Placenta was delivered. The uterus was exteriorized and cleaned of any further placental tissue and products of conception. Uterine incision was approximated using 0 Vicryl in a running interlocking stitch followed by further suture of 0 Vicryl in imbricating fashion. When hemostasis was noted the uterus was allowed back in the pelvic cavity. Pelvis was irrigated with warm normal saline. Once hemostasis was noted the rectus muscles were approximated using 0 Vicryl interrupted simple stitches 3. Once hemostasis was noted the fascia was approximated using 0 Vicryl simple running stitch. The incision was irrigated with warm saline.to attempt to decrease probability of wound breakdown due to thick keloid scar decision was made to excise the keloid scar. Once confirmation was obtained from the patient the scar was excised. Once hemostasis as noted, the subcuticular adipose tissue was reapproximated using 3-0 Vicryl in a simple running fashion. Skin was approximated using 4-0 Vicryl on a Alexys needle in a subcuticular manner. Counts were correct x3. Patient tolerated the procedure well, she was taken to recovery room in stable condition.
[2021-10-16] MEDS ORDERED: KETOROLAC 30 MG/1 ML INJ ONE (15:46)
[2021-10-16] MEDS ORDERED: HYDROmorphone 1 MG/1 ML INJ IV PRN (15:49)
[2021-10-16] MEDS ORDERED: NALOXONE 0.4 MG/1 ML INJ IV PRN ×2 (15:49→20:27)
[2021-10-16] MEDS ORDERED: ONDANSETRON 4 MG/2 ML INJ IV PRN (16:00)
[2021-10-16] MEDS ORDERED: PROMETHAZINE 25 MG RECT SUPP PR PRN (16:00)
[2021-10-16] MEDS ORDERED: PROMETHAZINE 25 MG TAB PO PRN (16:00)
[2021-10-16] MEDS ORDERED: hydrALAZINE 20 MG/1 ML INJ IV NR (16:02)
[2021-10-16] MEDS ORDERED: MAGNESIUM SULFATE 4 GM/100 ML BAG IV ONE ×2 (16:04→16:05)
[2021-10-16] MEDS ORDERED: MAGNESIUM SULFATE 40GM/1000ML 40 GM/1,000 ML BAG IV ONE (16:05)
[2021-10-16] MEDS ORDERED: hydrALAZINE 20 MG/1 ML INJ ONE (16:05)
[2021-10-16] MEDS ORDERED: MAGNESIUM SULFATE 40GM/1000ML 40 GM/1,000 ML BAG IV SCH (17:00)
[2021-10-16] MEDS ORDERED: LACTATED RINGERS 1,000 ML IV SCH (17:00)
[2021-10-16 17:15] LABS: Hematocrit 37.4 % (30.3-42.9); Hemoglobin 12.3 gm/dl (10.1-14.3); Mean Corpuscular HGB Conc 33 % (30-34); Mean Corpuscular Volume 91 fl (79-97); Platelet Count 170 K/mm3 (140-440); Red Cell Distribution Width 12.3 % (13.2-15.2)
[2021-10-16 17:37] LABS: Alanine Aminotransferase 14 units/L (7-56); Uric Acid 5.2 mg/dL (3.5-7.6)
[2021-10-16] MEDS: SIMETHICONE 80 MG CHEW TAB PO PRN (20:23)
[2021-10-16] MEDS ORDERED: LANOLIN/ZINC/DIMETHICONE (LANSINOH) 7 GM TP PRN (20:27)
[2021-10-16] MEDS ORDERED: WITCH HAZEL/ GLYCERIN PAD TP PRN (20:27)
[2021-10-16] MEDS ORDERED: MORPHINE 2 MG/1 ML INJ IV PRN (20:29)
[2021-10-16] MEDS ORDERED: MORPHINE 4 MG/1 ML INJ IV PRN (20:29)
[2021-10-16] MEDS ORDERED: MAGNESIUM HYDROXIDE (MOM) ORAL LIQD UDC PO PRN (20:29)
[2021-10-16] MEDS ORDERED: SENNOSIDES 8.6 MG TAB PO PRN (20:29)
[2021-10-16] MEDS ORDERED: D5W/LACTATED RINGERS 1,000 ML IV SCH (21:00)
[2021-10-16] MEDS: KETOROLAC 30 MG/1 ML INJ IV SCH (21:53)
[2021-10-16] MEDS: ceFAZolin/NS 1 GM/50 ML 1 GM/50 ML BAG IV SCH (22:39)
[2021-10-17] MEDS ORDERED: ACETAMINOPHEN 325 MG TAB PO SCH (01:00)
[2021-10-17] MEDS: ceFAZolin/NS 1 GM/50 ML 1 GM/50 ML BAG IV SCH (05:21)
[2021-10-17] MEDS: KETOROLAC 30 MG/1 ML INJ IV SCH (05:22)
[2021-10-17 06:14] LABS: Creatinine,Urine 16.8 mg/dL (0.1-20.0); Protein/Creatinine Ratio,Urine 0.24
[2021-10-17 07:48] LABS: Hematocrit 33.1 % (30.3-42.9)
--- NOTE | 2021-10-17 08:10 | Progress Note ---
Assessment and Plan - Patient Problems (1) delivery delivered Onset Date: ~06/24/20 Current Visit: No Status: Acute (2) Pre-eclampsia Current Visit: No Status: Acute Qualifiers: Trimester: third trimester Qualified Code(s): O14.93 - Unspecified pre- eclampsia, third trimester Subjective - Subjective Date of service: 10/17/21 Principal diagnosis: postop day #1 s/p rpt c/s; pre-e Patient reports: appetite normal, pain well controlled, flatus Objective - Vital Signs Latest vital signs: Vital Signs Temp Pulse Resp BP BP Pulse Ox Pulse Ox 10/17/21 08:08 74 100 10/17/21 08:03 76 99 10/17/21 07:58 69 99 10/17/21 07:53 76 100 10/17/21 07:48 77 99 10/17/21 07:43 78 100 10/17/21 07:38 84 99 10/17/21 07:33 77 99 10/17/21 07:28 76 100 10/17/21 07:27 77 94 10/17/21 07:23 84 100 10/17/21 07:18 81 100 10/17/21 07:13 72 127/70 100 10/17/21 07:08 87 99 10/17/21 07:03 82 97 10/17/21 06:58 79 98 10/17/21 06:54 80 99 10/17/21 06:48 79 97 10/17/21 06:43 75 120/69 98 10/17/21 06:38 78 97 10/17/21 06:33 79 98 10/17/21 06:28 77 98 10/17/21 06:23 79 98 10/17/21 06:18 73 99 10/17/21 06:13 81 123/69 99 10/17/21 06:08 81 99 10/17/21 06:03 82 99 10/17/21 05:58 87 98 10/17/21 05:53 80 97 10/17/21 05:48 79 98 10/17/21 05:47 78 93 10/17/21 05:43 75 117/70 98 10/17/21 05:38 79 100 10/17/21 05:33 86 99 10/17/21 05:29 98.1 F 17 10/17/21 05:28 89 97 10/17/21 05:23 73 99 10/17/21 05:18 68 99 10/17/21 05:13 119 H 119/75 97 10/17/21 05:08 75 98 10/17/21 05:03 71 99 10/17/21 04:58 71 99 10/17/21 04:53 73 99 10/17/21 04:48 72 99 10/17/21 04:43 77 125/74 100 10/17/21 04:38 74 100 10/17/21 04:33 84 100 10/17/21 04:28 86 100 10/17/21 04:23 97 H 99 10/17/21 04:18 68 100 10/17/21 04:13 71 127/72 100 10/17/21 04:08 77 100 10/17/21 04:03 75 99 10/17/21 03:58 72 99 10/17/21 03:53 72 99 10/17/21 03:48 71 99 10/17/21 03:43 72 116/70 99 10/17/21 03:39 74 94 10/17/21 03:38 72 100 10/17/21 03:33 71 99 10/17/21 03:28 69 99 10/17/21 03:23 75 100 10/17/21 03:18 75 99 10/17/21 03:13 69 116/66 99 10/17/21 03:08 70 99 10/17/21 03:03 71 100 10/17/21 03:02 80 94 10/17/21 02:58 78 99 10/17/21 02:53 69 98 10/17/21 02:48 68 98 10/17/21 02:43 64 118/69 98 10/17/21 02:38 65 99 10/17/21 02:33 71 100 10/17/21 02:28 67 100 10/17/21 02:23 72 99 10/17/21 02:18 73 99 10/17/21 02:13 67 114/71 98 10/17/21 02:08 69 99 10/17/21 02:03 68 100 10/17/21 01:58 73 99 10/17/21 01:53 82 100 10/17/21 01:48 70 97 10/17/21 01:43 70 109/62 98 10/17/21 01:38 69 98 10/17/21 01:33 63 98 10/17/21 01:28 63 98 10/17/21 01:23 65 98 10/17/21 01:18 61 98 10/17/21 01:13 72 115/69 99 10/17/21 01:08 63 98 10/17/21 01:03 65 99 10/17/21 00:58 60 100 10/17/21 00:56 62 94 10/17/21 00:53 82 100 10/17/21 00:48 69 99 10/17/21 00:43 69 112/63 99 10/17/21 00:38 68 100 10/17/21 00:35 97.9 F 17 10/17/21 00:33 77 99 10/17/21 00:32 78 91 10/17/21 00:28 82 100 10/17/21 00:27 93 H 86 10/17/21 00:23 79 100 10/17/21 00:21 43 L 94 10/17/21 00:18 98 10/17/21 00:16 76 92 10/17/21 00:13 75 115/62 98 10/17/21 00:08 68 97 10/17/21 00:03 66 98 10/16/21 23:58 68 98 10/16/21 23:53 69 98 10/16/21 23:48 71 99 10/16/21 23:43 65 107/57 98 10/16/21 23:38 69 98 10/16/21 23:33 71 98 10/16/21 23:28 66 98 10/16/21 23:23 69 98 10/16/21 23:18 65 98 10/16/21 23:13 88 116/63 99 10/16/21 23:08 71 98 10/16/21 23:03 70 99 10/16/21 22:58 66 100 10/16/21 22:53 68 99 10/16/21 22:48 77 99 10/16/21 22:43 74 104/60 100 10/16/21 22:38 78 98 10/16/21 22:33 74 99 10/16/21 22:28 84 99 10/16/21 22:23 76 100 10/16/21 22:18 87 100 10/16/21 22:13 80 111/55 100 10/16/21 22:08 72 100 10/16/21 22:03 75 100 10/16/21 21:58 71 100 10/16/21 21:53 92 H 110/64 100 10/16/21 21:51 80 110/64 10/16/21 21:48 75 100 10/16/21 21:43 69 100 10/16/21 21:38 82 100 10/16/21 21:33 74 100 10/16/21 21:28 67 100 10/16/21 21:23 86 100 10/16/21 21:18 77 99 10/16/21 21:13 82 100 10/16/21 21:08 83 100 10/16/21 21:03 76 100 10/16/21 20:58 88 96 10/16/21 20:53 80 100 10/16/21 20:48 73 100 10/16/21 20:43 79 100 10/16/21 20:41 73 93 10/16/21 20:38 76 100 10/16/21 20:33 74 100 10/16/21 20:28 72 100 10/16/21 20:23 73 100 10/16/21 20:18 87 97 10/16/21 20:13 77 118/58 100 10/16/21 20:08 71 100 10/16/21 20:03 69 100 10/16/21 19:58 70 100 10/16/21 19:53 68 100 10/16/21 19:48 68 100 10/16/21 19:43 70 117/64 100 10/16/21 19:38 93 H 100 10/16/21 19:33 64 100 10/16/21 19:28 72 100 10/16/21 19:26 97.2 F L 18 111/55 10/16/21 19:23 76 100 10/16/21 19:22 100 10/16/21 19:18 74 100 10/16/21 19:13 69 111/55 100 10/16/21 19:08 71 100 10/16/21 19:04 94 H 92 10/16/21 19:03 71 100 10/16/21 18:58 81 100 10/16/21 18:53 73 100 10/16/21 18:48 74 100 10/16/21 18:44 77 122/68 10/16/21 18:43 77 100 10/16/21 18:38 68 100 10/16/21 18:33 68 98 10/16/21 18:28 67 100 10/16/21 18:23 67 100 10/16/21 18:18 69 100 10/16/21 18:13 67 127/73 100 10/16/21 18:08 63 100 10/16/21 18:03 71 100 10/16/21 18:00 97.7 F 16 10/16/21 17:58 72 100 10/16/21 17:53 66 100 10/16/21 17:48 69 100 10/16/21 17:46 67 137/87 10/16/21 17:43 80 100 10/16/21 17:30 97.9 F 66 16 118/79 100 10/16/21 17:15 62 17 106/80 100 10/16/21 17:00 67 14 121/65 100 10/16/21 16:45 80 21 129/90 100 10/16/21 16:30 80 16 140/99 100 10/16/21 16:22 79 177/90 10/16/21 16:15 80 15 150/90 100 10/16/21 16:00 79 18 141/107 100 10/16/21 15:45 81 16 163/102 100 10/16/21 15:30 90 16 158/92 100 10/16/21 15:27 97.7 F 90 14 166/103 100 10/16/21 15:23 97.7 F 88 14 158/92 10/16/21 11:58 77 128/82 10/16/21 11:56 71 99 10/16/21 11:51 67 99 10/16/21 11:46 87 99 10/16/21 11:41 69 100 10/16/21 11:36 72 100 10/16/21 11:31 74 100 10/16/21 11:26 83 99 10/16/21 11:21 81 98 10/16/21 11:16 74 100 10/16/21 11:13 99 10/16/21 11:11 78 100 10/16/21 11:06 78 98 10/16/21 11:01 78 99 10/16/21 10:56 81 99 10/16/21 10:55 98.1 F 83 18 122/76 99 10/16/21 10:54 83 122/76 10/16/21 10:02 83 125/82 Intake and Output 10/16/21 10/17/21 10/17/21 23:59 07:59 15:59 Intake Total 250 Output Total 2650 1600 Balance -2400 -1600 Intake: IV 250 ANCEF/NS 1 GM/50 ML 1 gm 50 In 50 ml @ 100 mls/hr IV Q8H [facility] Rx#:[id number] Output: Urine 2650 1600 Indwelling Catheter 1450 1600 Uretheral ([place]) 600 Other: Total, Output Amount 400 600 - Exam Narrative Exam: Upon entering room, pt resting upright in bed, lights off, eyes closed. Pt alert and oriented x4, BP normotensive at this time. Denies chest pain, SOB, vision changes, and NVD. Reporting mild frontal headache, thinks it's because she hasn't eaten yet. Magnesium infusing, to be discontinued ~1630 today. ~600mL clear yellow urine in [place] bag. Lower abdominal dry and intact dressing in place. Fundus firm, below umbilicus, scant lochia noted on peripad in place x4+ hours. Pain well controlled with current medication regimen. Tolerating clear diet, to start regular diet this AM. Passing gas, bowel sounds hypoactive, abdomen soft and nondistended. Has not yet ambulated. Baby currently in nursery as no visitor at bedside per hospital policy. Questions answered regarding POC. Cardiovascular: Present: Regular rate, Normal S1, Normal S2 Lungs: Present: Clear to auscultation, Normal air movement Abdomen: Present: normal appearance, soft, normal bowel sounds Vulva: both: normal Uterus: Present: normal, fundal height below umbilicus Extremities: Present: normal Deep Tendon Reflex Grade: Normal +2 Incision: Present: dressed - Labs Labs: Abnormal lab results 10/16/21 10/16/21 10/16/21 Range/Units 05:09 05:09 17:00 RDW 12.3 L (13.2-15.2) % Creatinine 0.5 L (0.6-1.2) mg/dL Magnesium 2.70 H (1.7-2.3) mg/dL Lactate Dehydrogenase 251 H (91-180) units/L Urine Total Protein (5-11.8) mg/dL 10/17/21 10/17/21 Range/Units 01:52 05:40 RDW (13.2-15.2) % Creatinine (0.6-1.2) mg/dL Magnesium 4.50 H (1.7-2.3) mg/dL Lactate Dehydrogenase (91-180) units/L Urine Total Protein < 4 L (5-11.8) mg/dL
[2021-10-17] MEDS: PRENATAL VIT27-FE FUMARATE-FOLIC ACID VIT TAB PO SCH (09:46)
[2021-10-17] MEDS: SIMETHICONE 80 MG CHEW TAB PO PRN ×2 (09:47→17:37)
[2021-10-17] MEDS: oxyCODONE /ACETAMINOPHEN 5-325MG TAB PO PRN (17:33)
[2021-10-17] MEDS ORDERED: TETANUS,DIPH,PERTUSS(ACELL) VACCINE 0.5 ML SYRINGE IM ONE (20:30)
[2021-10-18] MEDS: oxyCODONE /ACETAMINOPHEN 5-325MG TAB PO PRN ×3 (02:50→23:58)
[2021-10-18] MEDS: PRENATAL VIT27-FE FUMARATE-FOLIC ACID VIT TAB PO SCH (10:27)
--- NOTE | 2021-10-18 12:51 | Progress Note ---
Assessment and Plan Pt denies ZUÑIGA, vision changes, and RUQ pain; reports ambulating, voiding, and eating without difficulty. VSSAF and post delivery H&H , stable. POC and precautions d/w pt. Anticipate discharge home tomorrow discussed. All questions addressed. - Patient Problems (1) delivery delivered Onset Date: ~06/24/20 Current Visit: No Status: Acute Plan to address problem: continue postoperative pathway (2) Pre-eclampsia Current Visit: No Status: Acute Qualifiers: Trimester: third trimester Qualified Code(s): O14.93 - Unspecified pre- eclampsia, third trimester Plan to address problem: Continue Labetalol 200mg BID continue to monitor BP and ssx for worsening, notify provider with any elevated BPs or changes in status Subjective - Subjective Date of service: 10/18/21 Principal diagnosis: postop day #2 s/p rpt c/s; Pre-elampsia s/p magnesium sulfate Patient reports: appetite normal, voiding normally, pain well controlled, ambulating normally [place]: doing well Objective - Vital Signs Latest vital signs: Vital Signs Temp Pulse Resp BP BP Pulse Ox Pulse Ox 10/18/21 08:15 98 10/18/21 07:36 97.9 F 64 20 128/78 98 10/18/21 04:40 70 20 128/86 100 10/18/21 02:50 16 10/18/21 00:57 98.2 F 65 20 138/95 99 10/17/21 21:42 134/88 10/17/21 21:00 80 100 10/17/21 20:59 97.8 F 20 135/88 10/17/21 20:58 97.8 F 20 134/95 10/17/21 19:26 97 10/17/21 17:33 20 10/17/21 17:05 99 10/17/21 16:24 82 100 10/17/21 16:19 76 100 10/17/21 16:14 82 126/73 100 10/17/21 16:09 78 100 10/17/21 16:04 78 100 10/17/21 16:00 98.5 F 10/17/21 15:59 75 100 10/17/21 15:54 84 100 10/17/21 15:49 84 100 10/17/21 15:44 78 100 10/17/21 15:43 81 119/67 10/17/21 15:39 78 100 10/17/21 15:34 76 100 10/17/21 15:29 80 100 10/17/21 15:24 77 100 10/17/21 15:19 79 98 10/17/21 15:18 75 90 10/17/21 15:14 84 100 10/17/21 15:13 73 117/75 10/17/21 15:09 79 100 10/17/21 15:04 81 100 10/17/21 14:59 82 98 10/17/21 14:54 78 99 10/17/21 14:49 79 99 10/17/21 14:44 81 99 10/17/21 14:43 100 H 119/59 10/17/21 14:39 82 98 10/17/21 14:34 82 98 10/17/21 14:29 84 98 10/17/21 14:24 87 100 10/17/21 14:19 95 H 98 10/17/21 14:14 95 H 98 10/17/21 14:13 92 H 111/64 10/17/21 14:08 94 H 99 10/17/21 14:04 86 98 10/17/21 13:59 89 99 10/17/21 13:54 81 94 10/17/21 13:50 77 94 10/17/21 13:49 85 96 10/17/21 13:44 83 115/70 99 10/17/21 13:39 84 100 10/17/21 13:34 88 99 10/17/21 13:29 85 100 10/17/21 13:23 87 99 10/17/21 13:18 89 98 10/17/21 13:14 95 H 98 10/17/21 13:13 87 118/58 10/17/21 13:09 85 100 10/17/21 13:04 93 H 99 10/17/21 12:59 77 99 10/17/21 12:54 81 99 Intake and Output 10/17/21 10/18/21 10/18/21 23:59 07:59 15:59 Intake Total 120 360 120 Output Total 500 700 Balance -380 -340 120 Intake: Oral 120 360 120 Output: Urine 500 700 Indwelling Catheter 200 Void 300 700 Other: Total, Intake Amount 120 120 120 Total, Output Amount 300 300 # Voids Void 1 1 1 - Exam Breasts: Present: normal Cardiovascular: Present: Regular rate Lungs: Present: Normal air movement Abdomen: Present: normal appearance, soft. Absent: distention Vulva: both: normal Uterus: Present: normal, firm, fundal height below umbilicus Extremities: Present: normal Incision: Present: normal, dry, intact - Labs Labs: Abnormal lab results 10/17/21 Range/Units 14:00 Magnesium 3.70 H (1.7-2.3) mg/dL
[2021-10-18] MEDS: IBUPROFEN 800 MG TAB PO PRN (16:37)
--- NOTE | 2021-10-19 08:34 | Discharge Summary ---
Providers - Providers Date of Admission: 10/16/21 09:10 Date of discharge: 10/19/21 (desires d/c home ) Attending physician: KANDI CARL 10/16/21 20:29 Consult to Broadcast Engineer [CONS] Routine Reason For Exam: Primary care physician: KANDI CARL Hospitalization Reason for admission: repeat c/s Condition: Good Pertinent studies: postop H&H Procedures: repeat c/s Hospital course: repeat c/s and postop course complicated by elevated b/p Disposition: 01 HOME / SELF CARE / HOMELESS Final Discharge Diagnosis (Prints w/discharge instructions): GHTN. postop c/s Time spent for discharge: 25 - Discharge Diagnoses (1) delivery delivered Status: Acute (2) Gestational HTN Status: Acute Qualifiers: Trimester: third trimester Qualified Code(s): O13.3 - Gestational [-induced] hypertension without significant proteinuria, third trimester Core Measure Documentation - Palliative Care Palliative Care/ Comfort Measures: Not Applicable - Core Measures Any of the following diagnoses?: none Exam - Physical Exam Narrative exam: lochia scant, fundus firm, incision D&I w/ steristrips. denies ZUÑIGA, visual changes or epigastric pain at this time. - Constitutional Vitals: Temp Pulse Resp BP Pulse Ox 97.3 F L 65 20 128/86 100 10/18/21 16:06 10/19/21 05:10 10/19/21 05:10 10/19/21 05:10 10/19/21 05:10 General appearance: Present: no acute distress, well-nourished - EENT Eyes: Present: PERRL ENT: hearing intact, clear oral mucosa - Neck Neck: Present: supple, normal ROM - Respiratory Respiratory effort: normal Respiratory: bilateral: CTA - Cardiovascular Rhythm: regular Heart Sounds: Absent: rub, click - Extremities Extremities: No edema Peripheral Pulses: within normal limits - Abdominal General gastrointestinal: Present: soft, non-tender, non-distended, normal bowel sounds Female genitourinary: Present: normal - Integumentary Integumentary: Present: clear, warm, dry - Musculoskeletal Musculoskeletal: gait normal, strength equal bilaterally - Psychiatric Psychiatric: appropriate mood/affect, intact judgment & insight - Neurologic Neurologic: CNII-XII intact, moves all extremities Plan Activity: advance as tolerated Diet: regular Wound: open to air, keep clean and dry Follow up with: KANDI CARL MD [Primary Care Provider] - 7 Days (Congratulations! Please call [phone] to schedule your incision check in 1 week. Shower daily and wash incision with soap and water, then dry thoroughly. Call if you experience headache, pain in your chest or changes in your vision.) Prescriptions: labetaloL [Labetalol 200mg TAB] 200 mg PO BID #60 tab Ibuprofen [Motrin 800 MG tab] 800 mg PO Q8HR PRN #30 tablet PRN Reason: Pain
[2021-10-19] MEDS: PRENATAL VIT27-FE FUMARATE-FOLIC ACID VIT TAB PO SCH (10:07)
[2021-10-19] MEDS: IBUPROFEN 800 MG TAB PO PRN (10:44)
[2021-10-19 15:56] VITALS: BP 127/80
== END 2021-10-19 16:13 | disposition home or self-care (01) | DRG 787 ==
LOC: APU 09:10 → LD 17:27 → OB 10-17 16:56
PROVIDERS: ADMIT Obstetrics & Gynecology; ATTEND Obstetrics & Gynecology
PROC: 10D00Z1 Extraction of Products of Conception, Low, Open Approach (ICD-10-PCS; principal; 2021-10-16)
PROC: 3E0234Z Introduction of Serum, Toxoid and Vaccine into Muscle, Percutaneous Approach (ICD-10-PCS; 2021-10-17)
DX: O13.4 Gestational [pregnancy-induced] hypertension without significant proteinuria, complicating childbirth (principal); O98.32 Other infections with a predominantly sexual mode of transmission complicating childbirth; O34.211 Maternal care for low transverse scar from previous cesarean delivery; O99.02 Anemia complicating childbirth; D57.3 Sickle-cell trait; O14.04 Mild to moderate pre-eclampsia, complicating childbirth; A60.04 Herpesviral vulvovaginitis; O14.94 Unspecified pre-eclampsia, complicating childbirth; Z3A.39 39 weeks gestation of pregnancy; Z37.0 Single live birth; Z23 Encounter for immunization; Z20.822 Contact with and (suspected) exposure to COVID-19
CPT/HCPCS: 36415; 82565; 82570; 83615; 83735; 84156; 84450; 84460; 84550; 85014; 85018; 85027; 86592; 86850; 86900; 86901; 88305; 99211; G0378; J3490; J7060; J7121; G0463; J0360; J0690; J1885; J2405; J2765; J3475; J7120; U0003